=== PATIENT | male | born 1960 | race Caucasian/White ===

== ENCOUNTER 2018-07-26 01:44 | Outpatient (CLI) | payer BC, SELFPAY ==
[2018-07-26 09:23] LABS: ALT 38 U/L (12-78); AST 21 U/L (15-37); Alkaline Phosphatase 86 U/L (46-116); Anion Gap 9.6 mmol/L (3-11); BUN 11 mg/dL (7-18); Bilirubin, Total 0.7 mg/dL (0.2-1.0); CO2 27.4 mmol/L (21.0-32.0); CREATININE 0.75 mg/dL (0.70-1.30); Calcium 8.7 mg/dL (8.5-10.1); Chloride 99 mmol/L (98-107); Cholesterol 218 mg/dL (50-200); Glucose 101 mg/dL (70-100); HDL Cholesterol 75 mg/dL (40-60); LDL CHOLESTEROL 133 mg/dL (<100); Potassium 4.3 mmol/L (3.5-5.1); Sodium 136 mmol/L (136-145); Total Protein 6.9 g/dL (6.4-8.2); Triglyceride 60 mg/dL (30-150)
[2018-07-27 09:38] LABS: PSA, Screening 1.2 ng/ml (0-3.5)
== END 2018-07-26 02:04 ==
PROVIDERS: PCP Physician Assistant Medical; Visit Provider Physician Assistant Medical
DX: Z00.00 Encounter for general adult medical examination without abnormal findings (principal); I10 Essential (primary) hypertension; Z12.5 Encounter for screening for malignant neoplasm of prostate
CPT/HCPCS: 36415; 80053; 80061; 83721; 84153

== ENCOUNTER 2019-06-07 19:40 | Outpatient (REF) | payer BC, SELFPAY ==
[2019-06-07 19:12] LABS: Abs Immature Grans 0.01 k/cumm (0.0-0.09); Absolute Basophil Count 0.01 k/cumm (0.0-0.2); Absolute Eosinophil Count 0.06 k/cumm (0.0-0.7); Absolute Lymphocyte Count 3.36 k/cumm (1.2-3.4); Absolute Monocyte Count 0.58 k/cumm (0.11-0.7); Absolute Neutrophil Count 2.74 k/cumm (1.2-6.7); Basophils % 0.1; Eosinophils % 0.9; HCT 38.7 % (40.0-50.0); Immature Grans % 0.1 %; Lymphocytes % 49.7; Mean Corp. HGB Concentration 36.2 g/dL (32.0-36.0); Mean Corpuscular Volume 88.6 fL (80-95); Mean Platelet Volume 9.8 fL (8.0-11.0); Monocytes % 8.6; Neutrophils % 40.6; Platelet Count 306 x1000/uL (130-400); RBC 4.37 m/cumm (4.50-6.00); White Blood Cell Count 6.76 k/cumm (4.4-10.8)
[2019-06-07 19:28] LABS: Hemoglobin A1C 5.5 % (3.8-5.6)
[2019-06-07 19:35] LABS: ALT 40 U/L (16-63); AST 26 U/L (15-37); Albumin 4.3 g/dL (3.4-5.0); Alkaline Phosphatase 84 U/L (46-116); Anion Gap 9.9 mmol/L (3-11); BUN 13 mg/dL (7-18); Bilirubin, Total 0.6 mg/dL (0.2-1.0); CO2 25.1 mmol/L (21.0-32.0); CREATININE 0.87 mg/dL (0.70-1.30); Calcium 8.5 mg/dL (8.5-10.1); Calculated LDL 112 mg/dL (<100); Chloride 95 mmol/L (98-107); Cholesterol 195 mg/dL (<200); Glucose 105 mg/dL (74-106); HDL Cholesterol 73 mg/dL (40-60); Potassium 4.3 mmol/L (3.5-5.1); Sodium 130 mmol/L (136-145); Total Protein 7.2 g/dL (6.4-8.2); Triglyceride 54 mg/dL (<150)
[2019-06-09 10:01] LABS: Lyme Ab w Rflx to Lyme Confirm Negative (Negative)
[2019-06-12 18:34] LABS: Anaplasma phagocytophilum Negative (Negative); B. miyamotoi PCR Negative (Negative); Babesia divergens/MO-1 Negative (Negative); Babesia duncani Negative (Negative); Babesia microti Negative (Negative); Ehrlichia chaffeensis Negative (Negative); Ehrlichia ewingii/canis Negative (Negative); Ehrlichia muris eauclairensis Negative (Negative)
== END 2019-06-07 20:00 ==
LOC: NCHCN 19:40
PROVIDERS: PCP Physician Assistant Medical; Visit Provider Physician Assistant Medical
DX: W57.XXXA Bitten or stung by nonvenomous insect and other nonvenomous arthropods, initial encounter (principal); T14.8XXA Other injury of unspecified body region, initial encounter; R73.01 Impaired fasting glucose; I10 Essential (primary) hypertension; R04.0 Epistaxis
CPT/HCPCS: 80053; 80061; 87798; 83036; 85025; 86618

== ENCOUNTER 2020-06-05 18:34 | Outpatient (REF) | payer BC, SELFPAY ==
[2020-06-05 21:09] LABS: ALT 46 U/L (16-63); AST 26 U/L (15-37); Albumin 4.3 g/dL (3.4-5.0); Alkaline Phosphatase 90 U/L (46-116); Anion Gap 9.4 mmol/L (3-11); BUN 12 mg/dL (7-18); Bilirubin, Total 0.5 mg/dL (0.2-1.0); CO2 26.6 mmol/L (21.0-32.0); CREATININE 0.8 mg/dL (0.70-1.30); Calcium 8.8 mg/dL (8.5-10.1); Calculated LDL 123 mg/dL (<100); Chloride 98 mmol/L (98-107); Cholesterol 217 mg/dL (<200); Glucose 89 mg/dL (74-106); HDL Cholesterol 84 mg/dL (40-60); Potassium 4.6 mmol/L (3.5-5.1); Sodium 134 mmol/L (136-145); Total Protein 7.4 g/dL (6.4-8.2); Triglyceride 52 mg/dL (<150)
[2020-06-05 21:23] LABS: Hemoglobin A1C 5.5 % (<5.7)
[2020-06-06 17:30] LABS: PSA, Screening 1.3 ng/mL (0.0-3.5)
== END 2020-06-05 18:35 | disposition home or self-care (01) ==
LOC: NCHCN 18:34
PROVIDERS: PCP Physician Assistant Medical; Visit Provider Physician Assistant Medical
DX: I10 Essential (primary) hypertension (principal); R73.03 Prediabetes; Z12.5 Encounter for screening for malignant neoplasm of prostate
CPT/HCPCS: 80053; 80061; 84153; 83036

== ENCOUNTER 2021-07-11 13:00 | Outpatient (REF) | payer BC, SELFPAY ==
[2021-07-11 15:22] LABS: ALT 42 U/L (16-63); AST 24 U/L (15-37); Albumin 4.1 g/dL (3.4-5.0); Alkaline Phosphatase 81 U/L (46-116); Anion Gap 7.6 mmol/L (3-11); BUN 12 mg/dL (7-18); Bilirubin, Total 0.6 mg/dL (0.2-1.0); CO2 26.4 mmol/L (21.0-32.0); CREATININE 0.8 mg/dL (0.70-1.30); Calcium 8.4 mg/dL (8.5-10.1); Calculated LDL 130 mg/dL (<100); Chloride 102 mmol/L (98-107); Cholesterol 211 mg/dL (<200); Glucose 96 mg/dL (74-106); HDL Cholesterol 75 mg/dL (40-60); Potassium 4.5 mmol/L (3.5-5.1); Sodium 136 mmol/L (136-145); Total Protein 6.9 g/dL (6.4-8.2); Triglyceride 34 mg/dL (<150)
[2021-07-11 22:35] LABS: PSA, Screening 1.5 ng/mL (<=4.5)
== END 2021-07-11 13:01 | disposition home or self-care (01) ==
LOC: NCHCN 13:00
PROVIDERS: PCP Physician Assistant Medical; Visit Provider Physician Assistant Medical
DX: I10 Essential (primary) hypertension (principal); N40.0 Benign prostatic hyperplasia without lower urinary tract symptoms; Z12.5 Encounter for screening for malignant neoplasm of prostate
CPT/HCPCS: 80053; 80061; 84153

== ENCOUNTER 2022-07-22 17:43 | Outpatient (REF) | payer BC, SELFPAY ==
[2022-07-22 19:59] LABS: ALT 43 U/L (16-63); AST 28 U/L (15-37); Albumin 4.2 g/dL (3.4-5.0); Alkaline Phosphatase 76 U/L (46-116); Anion Gap 10.6 mmol/L (3-11); BUN 15 mg/dL (7-18); Bilirubin, Total 0.6 mg/dL (0.2-1.0); CO2 24.4 mmol/L (21.0-32.0); CREATININE 0.8 mg/dL (0.70-1.30); Calcium 8.6 mg/dL (8.5-10.1); Calculated LDL 128 mg/dL (<100); Chloride 96 mmol/L (98-107); Cholesterol 212 mg/dL (<200); Estimated GFR 100.69 (mL/min/1.73m2); Glucose 94 mg/dL (74-106); HDL Cholesterol 77 mg/dL (40-60); Potassium 4.1 mmol/L (3.5-5.1); Sodium 131 mmol/L (136-145); Total Protein 7.3 g/dL (6.4-8.2); Triglyceride 39 mg/dL (<150)
[2022-07-23 19:38] LABS: PSA, Diagnostic 0.5 ng/mL (<=4.5)
== END 2022-07-22 17:44 | disposition home or self-care (01) ==
LOC: NCHCN 17:43
PROVIDERS: PCP Physician Assistant Medical; Visit Provider Physician Assistant Medical
DX: Z00.00 Encounter for general adult medical examination without abnormal findings (principal); E78.5 Hyperlipidemia, unspecified; N40.0 Benign prostatic hyperplasia without lower urinary tract symptoms; I10 Essential (primary) hypertension
CPT/HCPCS: 80053; 80061; 84153

== ENCOUNTER 2022-08-11 04:19 | Outpatient (CLI) | payer BC, SELFPAY ==
[2022-08-11 08:49] LABS: ALT 47 U/L (16-63); AST 34 U/L (15-37); Alkaline Phosphatase 81 U/L (46-116); Anion Gap 9.2 mmol/L (3-11); BUN 12 mg/dL (7-18); Bilirubin, Total 0.6 mg/dL (0.2-1.0); CO2 24.8 mmol/L (21.0-32.0); CREATININE 0.8 mg/dL (0.70-1.30); Calcium 8.3 mg/dL (8.5-10.1); Calculated LDL 119 mg/dL (<100); Chloride 98 mmol/L (98-107); Cholesterol 197 mg/dL (<200); Estimated GFR 100.69 (mL/min/1.73m2); Glucose 128 mg/dL (74-106); HDL Cholesterol 70 mg/dL (40-60); Potassium 4.1 mmol/L (3.5-5.1); Sodium 132 mmol/L (136-145); Total Protein 7.4 g/dL (6.4-8.2); Triglyceride 44 mg/dL (<150)
[2022-08-12 09:19] LABS: PSA, Screening 0.5 ng/mL (<=4.5)
== END 2022-08-11 04:20 | disposition home or self-care (01) ==
PROVIDERS: PCP Physician Assistant Medical; Visit Provider Physician Assistant Medical
DX: Z00.00 Encounter for general adult medical examination without abnormal findings (principal); E78.5 Hyperlipidemia, unspecified; Z12.5 Encounter for screening for malignant neoplasm of prostate
CPT/HCPCS: 36415; 80053; 80061; 84153

== ENCOUNTER 2023-02-24 18:50 | Outpatient (REF) | payer BC, SELFPAY ==
--- OUTSIDE RECORDS SUMMARY | 2023-02-24 18:53 | XMS_ITS | Continuity of Care Document ---
Author Name Unknown Organization [facility] Ambulatory Clinics Address [address] [place] [address] Care Team Providers Care Order Selector Name Role Phone Tresa Rowe Primary Care Physician Encounter [facility] NBR [id number] Date(s): 07/13/22 - 07/13/22 [facility] Ambulatory Clinics [address], [place] [address] Encounter Diagnosis Benign localized prostatic hyperplasia with lower urinary tract symptoms (LUTS) (Discharge Diagnosis) - 07/13/22 Discharge Disposition: Home or Self Care Attending Physician: Chelsy Fuller MD Allergies, Adverse Reactions, Alerts No Known Medication Allergies Assessment and Plan Future Appointments Functional Status 07/13/22 Living Environment Home Environment No qualifying data available Other exposure to Infectious Disease Non e Medications cholecalciferol 2000 intl units oral tablet 1 Unknown, 0 Refill(s) Start Date: 02/12/22 Status: Ordered finasteride 5 mg oral tablet 1 Unknown, 0 Refill(s) Start Date: 02/12/22 Status: Ordered Fish Oil 1000 mg oral capsule BID, 1 Unknown, 0 Refill(s) Start Date: 02/12/22 Status: Ordered lisinopril 40 mg oral tablet 1 Unknown, 0 Refill(s) Start Date: 02/12/22 Status: Ordered Melatonin 1 mg oral tablet 0 Refill(s) Start Date: 02/12/22 Status: Ordered multivitamin adult, oral tablet 0 Refill(s) Start Date: 02/12/22 Status: Ordered tamsulosin 0.4 mg oral capsule 0.8 mg = 2 cap, Oral, Daily, 0 Refill(s) Start Date: 03/23/22 Status: Ordered Problem List Condition Confirmation Course Effective Dates Status Health St atus Informant Benign localized prostatic hyperplasia with lower urinary tract symptoms (LUTS) Confirmed Active Essential hypertension Confirmed Active Full thickness rotator cuff tear Confirmed Active 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 Sprain of cruciate ligament of knee Confirmed Active Procedures Procedure Date Related Diagnosis Body Site Status Colonoscopy Completed Results Laboratory List Name Date .Urinalysis POCT 07/13/22 Most recent to oldest [Reference Range]: 1 Method of Collect POC Clean Catch *NA* (07/13/22 8:56 AM) Specific [place], Ur POC 1.015 *NA* (07/13/22 8:56 AM) Specimen Color POC [Yellow] Yellow (07/13/22 8:56 AM) Glucose, Urine POC Negative mg/dL *NA* (07/13/22 8:56 AM) Bilirubin, Urine POC [Negative] Negative (07/13/22 8:56 AM) Ketones, Urine POC [Negative mg/dL] Nega tive mg/dL (07/13/22 8:56 AM) Blood, Urine POC [Negative] Trace *ABN* (07/13/22 8:56 AM) pH, Urine POC 7.0 *NA* (07/13/22 8:56 AM) Protein, Urine POC [Negative mg/dL] Nega tive mg/dL (07/13/22 8:56 AM) Urobilinogen, Urine POC [0.2] 0.2 (07/13/22 8:56 AM) Nitrite, Urine POC [Negative] Negative (07/13/22 8:56 AM) Leuk Esterase, Urine POC [Negative] Nega tive (07/13/22 8:56 AM) Clarity, Urine POC [Clear] Clear (07/13/22 8:56 AM) Vital Signs Most recent to oldest [Reference Range]: 1 Temperature Temporal Artery [36-38 Deg C ] 35.9 Deg C *LOW* (07/13/22 8:38 AM) Apical Heart Rate [60-100 bpm] 65 bpm (07/13/22 8:38 AM) Respiratory Rate [12-24 br/min] 14 br/mi n (07/13/22 8:38 AM) Blood Pressure [90-140/60-90 mmHg] 118/7 8mmHg (07/13/22 8:38 AM) Weight 76.20 kg (07/13/22 8:38 AM) Weight Measured (lbs) 167.992 lb (07/13/22 8:38 AM) [place] Body Weight Calculated 66.1 kg (07/13/22 8:38 AM) Height 170.18 cm (07/13/22 8:38 AM) Height/Length Measured (inches) 67 inch (07/13/22 8:38 AM) BSA Measured 1.9 m2 (07/13/22 8:38 AM) Body Mass Index 26.31 kg/m2 (07/13/22 8:38 AM) Social History Social History Type Response Tobacco Never tobacco user T obacco Use:. Sex Physician Outpatient Note * Chelsy Fuller MD: PERFORM Event Display: Office Clinic Note Physician Authored Date: [id number] ANABELL MICHAEL :1960 Age:61 years Sex:Male Visit Date:07/13/2022 Primary Care Physician: Tresa Rowe History of Present Illness Mr. Michael is a pleasant 61 year-old man who presents today for follow-up ??of BPH/LUTS and chronic left groin pain.? He was last seen on??03/23/22. ?? He??continues to have??left groin pain intermittently,? which is more likely to cause bother when he is very active.?? He was diagnosed with a left inguinal hernia, and follows with Dr. [place].?? He is currently managing the hernia with observation. ?? He has had issues with urination for many years, and has been taking tamsulosin since 2013, when hesaw Dr. Duong, who recommended it. His PCP increased the dose to 0.8 mg nightly in December 2020.? He also takes finasteride, and has been taking it since June 2021. ?? He currently has some bother with LUTS, with nocturia x 2-3 (rarely once, usually only twice).? He voids about every 2h while awake.? He sometimes double voids.? He often has post-void dribbling.?? He??continues to have a slow urinary stream, especially at night.?? He sometimes has intermittency.? He does not strain to void.? He does not feel he always voids to completion.? He has urinary urgency at times, and now occasionally has low- volume UUI.?? He has urinary hesitancy at times, mainly at night.? His PVR today was??151?mL.? He has never had gross hematuria. He has never had urolithiasis. He has never had a UTI or prostatitis.? He has never had an elevated PSA. He does not have a family history of prostate or breast cancer.? PSA: 06/05/20: 1.3. Physical Exam Vitals & Measurements T:??35.9?C ??(Temporal Artery)?? HR:??65??(Apical)?? RR:??14?? BP:??118/78?? SpO2:??97%?? HT:??170.18??cm?? WT:??76.20??kg?? BMI:??26.31?? BSA:??1.9?? GENERAL APPEARANCE:??alert and oriented in NAD; appropriate with good affect.??.?? NEURO:??grossly intact.?? HEENT:??NCAT; EOMI.?? NECK:??supple.?? CHEST:??symmetric excursions.?? ABDOMEN:??soft, NT, ND.?? MUSCULOSKELETAL:??good gait and station.?? EXTREMITIES:??no c/c/e??.?? BACK/SPINE:??no CVAT.?? :??deferred. Assessment/Plan Benign localized prostatic hyperplasia with lower urinary tract symptoms (LUTS)??N40.1 Ordered: Urinalysis with Microscopic if Indicated, Urine, Routine Collect, 07/13/22, Once, Nurse collect, Print Label, Benign localized prostatic hyperplasia with lower urinary tract symptoms (LUTS), Order for future visit Urine Dipstick Clinic POC (RE), 07/13/22 8:37:00 EDT, Benign localized prostatic hyperplasia with lower urinary tract symptoms (LUTS), 07/13/22 8:37:00 EDT ?? ASSESSMENT:?? Mr. Michael is a pleasant 61 year-old man with BPH/LUTS with incomplete bladder emptying who manages his symptoms with high-dose tamsulosin and finasteride, which he started in August 2021.?? He continues to have some ??bother with LUTS, but finds it manageable.?? He does not want to consider surgical options at this point, and prefers to remain on maximal medical therapy. ?? PLAN: 1.?? He will continue??finasteride and high-dose tamsulosin.?? 2.?? He will follow up in one year. 3. We will obtain his PSA results from 2021 and 2022 from his PCP's office. 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 Tobacco Never tobacco user Tobacco Use:. Family History Family Member(s): ?? FATHER, at age: Unknown. Cause of : Lab Results Test Name Test Result Date/Time Method of Collect POC Clean Catch 07/13/2022 08:56 EDT Specimen Color POC Yellow 07/13/2022 08:56 EDT Clarity, Urine POC Clear 07/13/2022 08:56 EDT Glucose, Urine POC Negative 07/13/2022 08:56 EDT Bilirubin, Urine POC Negative 07/13/2022 08:56 EDT Ketones, Urine POC Negative 07/13/2022 08:56 EDT Specific [place], Ur POC 1.015 07/13/2022 08:56 EDT pH, Urine POC 7.0 07/13/2022 08:56 EDT Protein, Urine POC Negative 07/13/2022 08:56 EDT Urobilinogen, Urine POC 0.2 07/13/2022 08:56 EDT Nitrite, Urine POC Negative 07/13/2022 08:56 EDT Blood, Urine POC Trace 07/13/2022 08:56 EDT Leuk Esterase, Urine POC Negative 07/13/2022 08:56 EDT Electronically Signed on 07/13/22 09:17 AM Chelsy Fuller MD Patient Care team information Care Team Related Persons Name: GABRIELA MICHAEL Address: [address] [id number] [facility]
--- OUTSIDE RECORDS SUMMARY | 2023-02-24 18:53 | XMS_ITS | Continuity of Care Document ---
Author Name Unknown Organization [facility] Address [address] [place] [address] Care Team Providers Care Glaze Sprayer Name Role Phone Sydnie Rowe Primary Care Physician Encounter [facility] [facility] NBR [id number] Date(s): 09/02/22 - 09/02/[address] [address]- Encounter Diagnosis Abnormal findings on diagnostic imaging of other abdominal regions, including retroperitoneum(Final) - Hypo-osmolality and hyponatremia(Final) - Discharge Disposition: Home or Self Care Attending Physician: SYDNIE ROWE PA-C Admitting Physician: SYDNIE ROWE PA-C Referring Physician: SYDNIE ROWE PA-C Allergies, Adverse Reactions, Alerts No Known Medication Allergies Assessment and Plan Future Appointments Medications cholecalciferol 2000 intl units oral tablet 1 Unknown, 0 Refill(s) Start Date: 02/12/22 Status: Ordered finasteride 5 mg oral tablet 1 Unknown, 0 Refill(s) Start Date: 02/12/22 Status: Ordered finasteride 5 mg oral tablet 5 mg = 1 tab, Oral, Daily, # 30 tab, 11 Refill(s), Pharmacy: [facility][id number] Start Date: 08/05/22 Stop Date: 07/31/23 Status: Ordered Fish Oil 1000 mg oral [...] Diagnosis Body Site Status Colonoscopy Completed Results Radiology Reports * Exam Date Time Procedure Performing Provider Status 09/02/22 7:35 AM XR Chest 2 Views DomainUser, Generated ; Auth (Verified) Notes: (XR Chest 2 Views) Reason For Exam: hyponatrimia XR Chest 2 Views EXAM DESCRIPTION: XR Chest 2 Views 09/02/2022 INDICATION: HYPONATRIMIA TECHNIQUE: PA and lateral views of the chest. COMPARISON: None available FINDINGS: The lungs are well expanded and clear with no focal consolidation or pulmonary edema. The cardiomediastinal contour and pleural margins are within normal limits. Right mid clavicle deformity consistent with old, healed fracture. Postsurgical changes in the right humeral head. IMPRESSION: No active chest disease. JOB #: [id number] Final Signed by: eHron Schaefer MD Signed (Electronic Signature): 09/02/2022 9:10 am * Exam Date Time Procedure Performing Provider Status 09/02/22 7:35 AM US Abdomen Limited SymoneUserRobert ed; Auth (Verified) Notes: (US Abdomen Limited) Reason For Exam: Abnormal findings on diagnostic imaging US Abdomen Limited EXAM DESCRIPTION: US Abdomen Limited 09/02/2022 INDICATION: ABNORMAL FINDINGS ON DIAGNOSTIC IMAGING TECHNIQUE: Grayscale and color Doppler ultrasound examination of the right upper quadrant region of the abdomen. COMPARISON: None FINDINGS: Liver measures 14.3 cm in maximum dimension. No focal hepatic lesion identified. No evidence of hepatic surface nodularity or hepatic steatosis. The main portal vein is patent with normal flow direction. No ascites in the right upper quadrant Pancreas is partly obscured by overlying bowel gas. Visualized portions are unremarkable No cholelithiasis, gallbladder wall thickening or pericholecystic fluid accumulation. No biliary dilatation with common bile duct diameter of 4 mm. Negative sonographic Perry sign Right kidney measures 10.9 cm in maximum dimension. No focal right renal mass, hydronephrosis or perinephric fluid collection. IMPRESSION: No cholelithiasis or biliary dilatation Normal ultrasound examination of the liver. JOB #: [id number] Final Signed by: Heron Schaefer MD Signed (Electronic Signature): 09/02/2022 8:16 am Social History Social History Type Response Tobacco Never tobacco user T obacco Use:. Sex Patient Care team information Care Team Related Persons Name: GABRIELA MUHAMMAD Address: Home [address] [place] [phone] [facility]
[2023-02-24 20:46] LABS: Anion Gap 10.4 mmol/L (3-11); BUN 11 mg/dL (7-18); CO2 25.6 mmol/L (21.0-32.0); CREATININE 0.9 mg/dL (0.70-1.30); Calcium 9.1 mg/dL (8.5-10.1); Chloride 97 mmol/L (98-107); Estimated GFR 96.57 (mL/min/1.73m2); Glucose 102 mg/dL (74-106); Sodium 133 mmol/L (136-145)
== END 2023-02-24 18:51 | disposition home or self-care (01) ==
LOC: NCHCN 18:50
PROVIDERS: PCP Physician Assistant Medical; Visit Provider Physician Assistant Medical
DX: I10 Essential (primary) hypertension (principal)
CPT/HCPCS: 80048

== ENCOUNTER 2023-08-25 19:44 | Outpatient (REF) | payer BC, SELFPAY ==
[2023-08-25 22:38] LABS: Anion Gap 9.2 mmol/L (3-11); BUN 8 mg/dL (7-18); CO2 24.8 mmol/L (21.0-32.0); CREATININE 0.8 mg/dL (0.70-1.30); Calcium 8.9 mg/dL (8.5-10.1); Calculated LDL 109 mg/dL (<100); Chloride 97 mmol/L (98-107); Cholesterol 197 mg/dL (<200); Estimated GFR 99.44 (mL/min/1.73m2); Glucose 119 mg/dL (74-106); HDL Cholesterol 78 mg/dL (40-60); Potassium 4.2 mmol/L (3.5-5.1); Sodium 131 mmol/L (136-145); Triglyceride 50 mg/dL (<150)
== END 2023-08-25 19:45 | disposition home or self-care (01) ==
LOC: NCHCN 19:44
PROVIDERS: PCP Physician Assistant Medical; Visit Provider Physician Assistant Medical
DX: I10 Essential (primary) hypertension (principal); E78.5 Hyperlipidemia, unspecified
CPT/HCPCS: 80048; 80061

== ENCOUNTER 2024-03-01 19:35 | Outpatient (REF) | payer BC, SELFPAY ==
--- OUTSIDE RECORDS SUMMARY | 2024-03-01 19:40 | XMS_ITS | Continuity of Care Document ---
Author Organization [facility] Address [address] [place] [address] Care Team Providers Care Distribution Systems Serviceperson Name Role Phone SYDNIE PEREIRA PA-C Primary Care Kailyn dora Encounter [facility] [facility] NBR [id number] Date(s): 07/16/23 - 07/16/[address] [id number]- [place] Discharge Disposition: Home or Self Care Attending Physician: Chelsy Fuller MD Admitting Physician: Chelsy Fuller MD Referring Physician: Chelsy Fuller MD Allergies, Adverse Reactions, [...] Daily, # 30 tab, 11 Refill(s), Pharmacy: [facility] #[id number] Start Date: 08/05/22 Stop Date: 07/31/23 Status: [...] Colonoscopy Completed Results Laboratory List Name Date PSA Diagnostic 07/16/23 Most recent to oldest [Reference Range]: 1 PSA Total Diagnostic [<=4.000 ng/mL] 0.6 67 ng/mL 1 (07/16/23 7:19 AM) 1Interpretive Data: The concentration of Prostate specific antigen determined from different manufactures and assay methods will vary due to differences in the method and reagent specificity. Values obtained by different methods cannot be used interchangeably and may not be comparable. This is a [employer]??paramagnetic particle, chemiluminescent immunoassay. Social History Social History Type Response Tobacco Never tobacco user T obacco Use:. Sex Patient Care team information Care Team Personnel Name: KELLI ROMERO, SYDNIE JIMENEZ Position: No Access Member Role: Primary Care Physician Address: Address: [address] [address]- Care Team Related Persons Name: GABRIELA MUHAMMAD Address: Home [address] [place] [phone] [facility]
--- OUTSIDE RECORDS SUMMARY | 2024-03-01 19:40 | XMS_ITS | Encounter Summary ---
Author Organization [facility] Address [address] [place] [address] Care Team Providers Care Social Services Aide Name Role Phone Malik Ye MD Primary Care Provider U romaine Encounter Details Date Type Department Care Team (Late st Contact Info) Description 06/08/2019 Lab Requisition [facility] Pathology & Laboratory Medicine - [address] [address] Unknown, Provider, Social History Tobacco Use Types Packs/Day Years Used Date Smoking Tobacco: Never Assessed Sex and Gender Information Value Date Recorded Sex Assigned at Not on file Legal Sex Male 18:52 EST Gender Identity Not on file Sexual Orientation Not on file documented as of this encounter Plan of Treatment Not on file documented as of this encounter Procedures Procedure Name Priority Date/Time Associated Diagnosis Comments LYME AB Routine 06/07/2019 17:50 EDT documented in this encounter Results * LYME AB (06/07/2019 17:50 EDT) Lyme Ab Negative Negative 06/09/2019 9:55 EDT [facility] Blood VENOUS BLOOD / Unknown 06/07/2019 17:50 EDT 06/08/2019 17:24 EDT us Provider Unknown IMMUNOLOGY AND SEROLOGY CASTILLO HUTTON Final Result [facility] [address] [place] [address] documented in this encounter Visit Diagnoses Not on filedocumented in this encounter Care Teams Social Services Aide Relationship Specialty Start Date End Date Malik Ye MD PCP - General 09/03/10 documented as of this encounter
--- OUTSIDE RECORDS SUMMARY | 2024-03-01 19:40 | XMS_ITS | Encounter Summary ---
Author Organization [facility] [place] [address] Care Team Providers Care Burglar Alarm Installer Name Role Phone Tresa Rowe Primary Care Provider [phone] Encounter Details Date Type Department Care Team (Latest Contact Info) Description 06/11/2023 Travel Social History Tobacco Use Types Packs/Day Years Used Date Smoking Tobacco: Never Smokeless Tobacco: Never Alcohol Use Standard Drinks/Week Comments Yes 0 (1 standard drink = 0.6 oz pur e alcohol) Sex and Gender Information Value Date Recorded Sex Assigned at Not on file Gender Identity Not on file Sexual Orientation Not on file documented as of this encounter Plan of Treatment Not on file documented as of this encounter Visit Diagnoses Not on filedocumented in this encounter Care Teams Burglar Alarm Installer Relationship Specialty Start Date End Date Tresa Rowe PA [address] [place] [address] PCP - General Family Medicine 06/11/23 documented as of this encounter
--- OUTSIDE RECORDS SUMMARY | 2024-03-01 19:40 | XMS_ITS | Encounter Summary ---
Author Organization [facility] Address [address] [place] [address] Care Team Providers Care Railway Equipment Operator Name Role Phone Malik Ye MD Primary Care Provider U romaine Encounter Details Date Type Department Care Team (Late st Contact Info) Description 08/11/2022 Lab Requisition [facility] Pathology & Laboratory Medicine - [facility] [address] [place] [address] Outr Resulting Lab, Provider Social History Tobacco Use Types Packs/Day Years [...] Procedure Name Priority Date/Time Associated Diagnosis Comments PSA TOTAL, DIAGNOSTIC Routine 08/11/2022 7:40 EDT documented in this encounter Results * PSA TOTAL, DIAGNOSTIC (08/11/2022 7:40 EDT) PSA 0.5 <=4.5 ng/mL 08/12/2022 9:14 EDT [facility] Blood VENOUS BLOOD / Unknown 08/11/2022 7:40 EDT 08/11/2022 16:51 EDT Narrative [facility] - 08/12/2022 9:14 EDT NOTE: Serum PSA concentration should not be interpreted as absolute evidence for the presence or absence of malignant disease. Assayed on Siemens [employer] Interactiveaur XPT using chemiluminescent technology.??Values obtained by using different assay methods cannot be used interchangeably. us Provider Outr Resulting Lab CHEMISTRY & BLOOD GA S ORDERABLES Final Result [facility] [address] [place] [address] documented in this encounter Visit Diagnoses Not on filedocumented in this encounter Care Teams Railway Equipment Operator Relationship Specialty Start Date End Date Malik Ye MD PCP - General 09/03/10 documented as of this encounter
--- OUTSIDE RECORDS SUMMARY | 2024-03-01 19:40 | XMS_ITS | Encounter Summary ---
Author Organization [facility] Address [address] [place] [address] Care Team Providers Care Education Professor Name Role Phone Malik Ye MD Primary Care Provider U romaine Encounter Details Date Type Department Care Team (Late st Contact Info) Description 07/11/2021 Lab Requisition [facility] Pathology & Laboratory Medicine - [facility] [address] [place] [address] Outr Resulting Lab, Provider Social History Tobacco [...] Associated Diagnosis Comments PSA TOTAL, DIAGNOSTIC Routine 07/11/2021 8:20 EDT documented in this encounter Results * PSA TOTAL, DIAGNOSTIC (07/11/2021 8:20 EDT) PSA 1.5 <=4.5 ng/mL 07/11/2021 22:30 EDT [facility] Blood VENOUS BLOOD / Unknown 07/11/2021 8:20 EDT 07/11/2021 21:21 EDT Narrative [facility] - 07/11/2021 22:30 EDT NOTE: Serum PSA concentration should not be interpreted as absolute evidence for the presence or absence of malignant disease. Assayed on Siemens [employer]VIA [employer] XPT using chemiluminescent technology.??Values obtained by using different assay methods cannot be used interchangeably. us Provider Outr Resulting Lab CHEMISTRY & BLOOD GA S ORDERABLES Final Result [facility] [address] [place] [address] documented in this encounter Visit Diagnoses Not on filedocumented in this encounter Care Teams Education Professor Relationship Specialty Start Date End Date Malik Ye MD PCP - General 09/03/10 documented as of this encounter
--- OUTSIDE RECORDS SUMMARY | 2024-03-01 19:40 | XMS_ITS | Continuity of Care Document ---
Author Organization [facility] Ambulatory Clinics Address [address] [place] [address] Care Team Providers Care Blanching Machine Operator Name Role Phone SYDNIE PEREIRA PA-C Primary Care Kailyn john Encounter [facility] NBR [id number] Date(s): 01/31/24 - 01/31/24 [facility] Ambulatory Clinics [address] [place], [place] [address] Encounter Diagnosis Localized infection of skin(Discharge Diagnosis) - 01/31/24 Local infection of the skin and subcutaneous tissue, unspecified(Final) - Discharge Disposition: Home or Self Care Attending Physician: Elodia Joy PA-C Allergies, Adverse Reactions, Alerts No Known Medication Allergies Assessment and Plan Extracted from: Title:[facility] Urgent Care Office Visit Note Author:Truong Joy PA-C Date:01/31/24 1.??Localized infection of s kin??L08.9 ??Patient presenting??with??what appears to be a localized infection??of the skin at the site of previous splinters. ??It does appear that the splinters have been removed in entirety.?? No fever or chills or signs of tenosynovitis.?? Patient is unsure if he has a history of MRSA but notes that he did have a serious infection that required IV antibiotics in the past.?? He will be started on Bactrim.?? Encouraged that he wash the site twice daily with an antibacterial soap. ??Should he develop any worsening pain, redness, swelling, loss of range of motion in the digit or fever advised immediate recheck. ??He agrees with plan and will follow-up as needed Ordered: Bactrim DS 800 mg-160 mg oral tablet, 1 tab, Oral, BID, # 14 tab, 0 Refill(s), Pharmacy: [id number], 174, cm, 07/19/23 7:59:00 EDT, Height, 77.11, kg, 01/31/24 20:00:00 EST, Weight Dosing Office serv/reg jean/wkend/holiday [id number], 01/31/24 19:07:00 EST, Localized infection of skin ?? Future Appointments Medications Bactrim DS 800 mg-160 mg oral tablet 1 tab, Oral, BID, # 14 tab, 0 Refill(s), Pharmacy: [id number], 174, cm, 07/19/23 7:59:00 EDT, Height, 77.11, kg, 01/31/24 20:00:00 EST, Weight Dosing Start Date: 01/31/24 Stop Date: 02/07/24 Status: Ordered cholecalciferol 2000 intl units oral tablet 1 Unknown, 0 Refill(s) Start Date: 02/12/22 Status: Ordered finasteride 5 mg oral tablet 1 Unknown, 0 Refill(s) Start Date: 02/12/22 Status: Ordered finasteride 5 mg oral tablet 5 mg = 1 tab, Oral, Daily, # 90 tab, 3 Refill(s), Pharmacy: [id number], 174, cm, 07/19/23 7:59:00 EDT, Height, 77.11, kg, 07/19/23 8:06:00 EDT, Weight Dosing Start Date: 07/19/23 Stop Date: 07/13/24 Status: Ordered Fish Oil 1000 mg oral [...] Related Diagnosis Body Site Status Colonoscopy Completed Vital Signs Most recent to oldest [Reference Range]: 1 Temperature Tympanic [36.6-38.1 Deg C] 3 6.6 Deg C (01/31/24 7:52 PM) Peripheral Pulse Rate [60-100 bpm] 62 bp m (01/31/24 7:52 PM) Blood Pressure [90-120/60-80 mmHg] 138/8 4mmHg *HI* (01/31/24 7:52 PM) Mean Arterial Pressure, Cuff [65-140 mmH g] 102 mmHg (01/31/24 7:52 PM) Weight 77.11 kg (01/31/24 7:52 PM) Weight Measured (lbs) 169.998 lb (01/31/24 7:52 PM) Weight Dosing 77.110 kg (01/31/24 7:52 PM) Social History Social History Type Response Tobacco Never tobacco user T obacco Use:. Sex Sex Representation Male (finding) Physician Outpatient Note * Elodia Joy PA-C: PERFORM Event Display: Office Clinic Note Physician Authored Date: [id number] ANABELL MUHAMMAD JR :1960 Age:63 years Sex:Male Visit Date:01/31/2024 Primary Care Physician: KELLI ROMERO, SYDNIE JIMENEZ Chief Complaint splinters from pressure treated wood in left thumb, unsure if theres more in there, thump is swollen and warm, uncomfortable pt wants to rule out/prevent infection. pt denies any fevers or other symptoms History of Present Illness This is a 63-year-old male who presents with concern for an infection in his hand. ??Patient reports that he removed several splinters from pressure-treated wood??between his left thumb and index finger and is concerned that it may be infected. ??It is red, warm, swollen,??and his thumb is a bit stiff. ??He has not had any fever or chills.?? He is concerned because he has had an infection in the past that required 3 days of IV antibiotics. ??He did thoroughly cleanse the area and believes that he removed all the splinters Physical Exam Vitals & Measurements T:??36.6?C ??(Tympanic)?? HR:??62??(Peripheral)?? BP:??138/84?? SpO2:??97%?? WT:??77.11??kg?? General: Alert and oriented x 3, no acute distress, well-nourished and hydrated Heart: Regular rate and rhythm, no murmurs, rubs, gallops Extremities: Examination of the volar aspect of the base of the left thumb reveals??2 superficial abrasions with surrounding erythema, mild edema, warmth, tenderness to palpation. ??There is no pinpoint or localized tenderness. ??No obvious??superficial foreign body.?? Flexion and extension of the thumb are intact. Assessment/Plan 1.??Localized infection of skin??L08.9 ??Patient presenting??with??what appears to be a localized infection??of the skin at the site of previous splinters. ??It does appear that the splinters have been removed in entirety.?? No fever or chills or signs of tenosynovitis.?? Patient is unsure if he has a history of MRSA but notes that he did have a serious infection that required IV antibiotics in the past.?? He will be started on Bactrim.?? Encouraged that he wash the site twice daily with an antibacterial soap. ??Should he develop any worsening pain, redness, swelling, loss of range of motion in the digit or fever advised immediaterecheck. ??He agrees with plan and will follow-up as needed Ordered: Bactrim DS 800 mg-160 mg oral tablet, 1 tab, Oral, BID, # 14 tab, 0 Refill(s), Pharmacy: [id number], 174, cm, 07/19/23 7:59:00 EDT, Height, 77.11, kg, 01/31/24 20:00:00 EST, Weight Dosing Office serv/reg jean/wkend/holiday [id number], 01/31/24 19:07:00 EST, Localized infection of skin ?? 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 Sprain of cruciate ligament of knee Historical No qualifying data Procedure/Surgical History ???Colonoscopy Medications Bactrim DS 800 mg-160 mg oral tablet, 1 tab, Oral, BID cholecalciferol 2000 intl units oral tablet finasteride 5 mg oral tablet finasteride 5 mg oral tablet, 5 mg= 1 tab, Oral, Daily, 3 refills Fish Oil 1000 mg oral capsule, BID lisinopril 40 mg oral tablet Melatonin 1 mg oral tablet multivitamin adult, oral tablet tamsulosin 0.4 mg oral capsule, 0.8 mg= 2 cap, Oral, Daily Allergies No Known Medication Allergies Social History Alcohol Current, Daily Electronic Cigarette/Vaping Electronic Cigarette Use: Never. Tobacco Never tobacco user Tobacco Use:. Family History Family history is negative Family Member(s): ?? FATHER, at age: Unknown. Cause of : Electronically Signed on 01/31/2024 20:44 EST Elodia Joy PA-C Patient Care team information Care Team Personnel Name: SYDNIE PEREIRA PA-C Position: No Access Member Role: Primary Care Physician Address: [place] [address]- Care Team Related Persons Name: GABRIELA MUHAMMAD Insurance Providers Guarantor name: ANABELL MUHAMMAD Health Plan Information #: 1 Payer: SARAH BS Member Number: [id number] Policy Number: NA Health Plan Information #: 2 Payer: BS Member Number: [id number] Policy Number: NA
--- OUTSIDE RECORDS SUMMARY | 2024-03-01 19:40 | XMS_ITS | Encounter Summary ---
Author Organization [facility] [place] [address] Care Team Providers Care Printed Circuit Layout Taper Name Role Phone Zully Cruz APRN Primary Care Provider [phone] Encounter Details Date Type Department Care Team (Late st Contact Info) Description 07/05/2012 External Results XRay at [address] [place] [address] Provider, Scanning Social History Tobacco Use Types Packs/Day Years [...] Procedure Name Priority Date/Time Associated Diagnosis Comments MRI/MRA SCAN Routine 06/07/2012 documented in this encounter Results * Scan Doc: MRI/MRA (06/07/2012) Anatomical Region Laterality Modality Other Scanning Provider MEDIA MGR SCAN EXT O RDR/RSLT documented in this encounter Visit Diagnoses Not on filedocumented in this encounter Care Teams Printed Circuit Layout Taper Relationship Specialty Start Date End Date Zully Cruz APRN PCP - General 07/03/12 06/10/23 documented as of this encounter
--- OUTSIDE RECORDS SUMMARY | 2024-03-01 19:40 | XMS_ITS | Encounter Summary ---
Author Organization [facility] Address [address] [place] [address] Care Team Providers Care Hat Blocker Name Role Phone Malik Ye MD Primary Care Provider Bart gavin Encounter Details Date Type Department Care Team (Late st Contact Info) Description 06/06/2020 Lab Requisition [facility] Pathology & Laboratory Medicine - [facility] [address] [place] [address] Outr Resulting Lab, Provider Social History Tobacco [...] Associated Diagnosis Comments PSA TOTAL, DIAGNOSTIC Routine 06/05/2020 17:43 EDT documented in this encounter Results * PSA TOTAL, DIAGNOSTIC (06/05/2020 17:43 EDT) PSA 1.3 0.0 - 3.5 ng/mL 06/06/2020 17:25 EDT [facility] Blood VENOUS BLOOD / Unknown 06/05/2020 17:43 EDT 06/06/2020 16:07 EDT Narrative [facility] - 06/06/2020 17:25 EDT NOTE: Serum PSA concentration should not be interpreted as absolute evidence for the presence or absence of malignant disease. Assayed on [employer] XPT using chemiluminescent technology.??Values obtained by using different assay methods cannot be used interchangeably. us Provider Outr Resulting Lab CHEMISTRY & BLOOD GA S ORDERABLES Final Result [facility] [address] [place] [address] documented in this encounter Visit Diagnoses Not on filedocumented in this encounter Care Teams Hat Blocker Relationship Specialty Start Date End Date Malik Ye MD PCP - General 09/03/10 documented as of this encounter
--- OUTSIDE RECORDS SUMMARY | 2024-03-01 19:40 | XMS_ITS | Encounter Summary ---
[place] [address] Care Team Providers Care Auto Haulaway Driver Name Role Phone Zully Cruz APRN Primary Care Provider [phone] Reason for Visit * Reason Comments Right Leg Pain Encounter Details Date Type Department Care Team (Latest Contact Info) Description 07/05/2012 7:20 AM EDT Office [place] [address] Steve Villalpando MD Spinal stenosis of lumbar region with radiculopathy L3-4 with right anterior thigh pain (Primary Dx) Discharge Disposition: Home Social History Tobacco Use Types Packs/Day Years Used Date Smoking Tobacco: Never Smokeless Tobacco: Never Alcohol Use Standard Drinks/Week Comments Yes 0 (1 standard drink = 0.6 oz pur e alcohol) Sex and Gender Information Value Date Recorded Sex Assigned at Not on file Gender Identity Not on file Sexual Orientation Not on file documented as of this encounter Last Filed Vital Signs Vital Sign Reading Time Taken Comments Blood Pressure 124/78 07/05/2012 7:57 AM EDT Pulse - - Temperature - - Respiratory Rate - - Oxygen Saturation - - Inhaled Oxygen Concentration - - Weight 72.6 kg (160 lb) 07/05/2012 7:57 AM EDT Height 172.7 cm (5' 8) 07/05/2012 7:57 AM EDT Body Mass Index 24.33 07/05/2012 7:57 AM EDT documented in this encounter Progress Notes * Valeriano Jean-Baptiste - 07/05/2012 8:41 AM EDT Dictating for Dr. Villalpando. This is a spine center consult note. CHIEF COMPLAINT: Right anterior thigh and right buttock pain. HISTORY OF PRESENT ILLNESS: Mr. Michael is a very pleasant 51-year-old gentleman who describes two-month history of right lower extremity and low back pain. He describes the onset of this as associated with a maneuver carrying a golf bag when he twisted his back. This was done in [place]. He then had a duration of symptoms including mostly right buttock pain at that point that has progressed more to right anterior thigh pain. He was seen by his primary care provider or a nurse practitioner at office and was diagnosed with piriformis syndrome, however, the pain did not seem to improve. He underwent a course of oral steroids and then was seen in the emergency department at which time he was ruled out for kidney stones due to a history at that time of some urinary dribbling and retention. He was taking Vicodin and tramadol for control of his pain. Kidney stones were ruled out but he was then started on Flomax and bethanechol and was referred to urologist who ruled out any prostate issues. He states that over the past couple of weeks the pain has improved significantly. During the time when pain was at its worst, he had difficulty walking and sleeping with any comfort. He states that sitting was the only position that was comfortable for him. He denies any numbness in the lower extremities, however, did complain of some bilateral calf tingling. He also complains of weakness in the right thigh, especially with his quadriceps muscle and feels that it is atrophying. He has noticed that difficulty at work when carrying a ladder approximately 28 feet in length. He had no incontinence of stool, however, had some constipation which he relates to use of the pain medications. He has also had some low back pain but this has been much less of an issue than the right lower extremity pain. He comes in today for evaluation and suggestion of ways to avoid the situation in the future. He also has been taking ibuprofen 800 mg three times daily throughout this and feels that that gives him some relief. At this point, he is also taking Flexeril at night occasionally and has done so once in the past week. Past medical history includes hyperlipidemia, hypertension, PVCs. Past surgical history includes right knee surgery x3 including ACL reconstruction and microfracture in 2012. He has had hernia surgery as well as colonoscopy. Medications are up to date and reviewed in eD-H includes simvastatin, lisinopril, tamsulosin, ibuprofen, aspirin, multivitamin, fish oil. ALLERGIES: NO KNOWN DRUG ALLERGIES. FAMILY HISTORY: Noncontributory. SOCIAL HISTORY: He denies using tobacco or smoking cigarettes. He drinks occasional alcohol. 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 He does do some lifting at his job. He enjoys golf and using the [employer] to a significant degree. He is very active. PHYSICAL EXAMINATION: Generally, awake and alert, in no acute distress. Gait is observed and demonstrates no antalgia. He is able to heel walk and toe walk. He is able to do repeated heel raises without fatiguing. He can tandem walk. Back: He has no tenderness to palpation throughout the thoracic or lumbar or sacral spine. Extension reveals good extension without reproduction of pain to approximately 25 degrees. He can flex fully and touch his hands to his feet. Straight leg raises are negative bilaterally as are femoral tension signs with the patient prone. He has 5/5 strength throughout the bilateral lower extremities including hip flexion, knee flexion, knee extension, ankle plantar and dorsiflexion, EHL, peroneals. His bilateral sensation is intact to light touch throughout the lower extremities. This is in all distributions. He has 1+ palpable DP pulse bilaterally. He has absent patellar reflexes bilaterally and normal 1+ Achilles reflexes bilaterally. Babinski's are downgoing. His hips demonstrate full range of motion without reproduction of pain. He has no clonus as well. IMAGING: Though he has had several other imaging studies including x-rays and CT scans in the recent past, what we have available for today for review is an MRI performed at an outside institution on June 06. On review of these images, they demonstrate generally normal-appearing lumbar spine, however, there is some evidence of disease at the L3-L4 level. He does have some degenerative disk disease throughout the lumbar spine, especially at the L5-S1, L3-L4, and T12-L1 areas. At the L3-L4 level, he does have some [id number] stenosis both centrally and the lateral recesses as well. On the right side, he does have some evidence of a disk protrusion that seems to be encroaching upon the right L3 nerve foramen and nerve root. With this evidence of stenosis at the L3-L4 level, there is a chance that his exiting L3 or traversing L4 nerve roots are inflamed. Certainly, there is no evidence of severe stenosis that would be likely responsible for any type of cauda equina syndrome. ASSESSMENT AND PLAN: Mr. Michael is a very pleasant, very active 51-year-old gentleman with right buttock and anterior thigh pain that has been going on for two months that has been significantly resolving over the past few weeks. At this point, he has minimal disability due to the pain and is taking minimal medications. He has evidence of some jyvu-pu-[id number] stenosis at the L3-L4 level and a right-sided lateral disk protrusion that may be irritating the exiting L3 nerve root. We recommended that he continue his ibuprofen if he is continuing to have pain. We recommended that he take it easy and avoid any bending, twisting, or heavy lifting activities to avoid re-injuring his back. We did discuss the natural history of this and that he would likely improve significantly over time as it is continuing to be. He may have recurrences of back pain in the future, but certainly at this point nothing to be done surgically nor any other interventions that would likely make this resolve any quicker given that it is almost already completely resolved. The patient is in agreement with this plan. He will come back to see us if he has any questions in the future. * Steve Villalpando MD - 07/05/2012 8:39 AM EDT Mr. Michael is a 51-year-old gentleman seen today in the spine center for resolving right buttock and anterior thigh pain. The patient is seen and evaluated with Dr. Jean-Baptiste. Please refer to his separate comprehensive spine center note. I reviewed and personally agree with his assessment and plan and reviewed, examined, and obtained the history with Dr. Jean-Baptiste from Mr. Michael. His symptoms began in mid April when he was lifting a golf bag, had initially very significant buttock and right anterior thigh pain. These symptoms have resolved. Right now he is quite comfortable with taking anti-inflammatories. PHYSICAL EXAMINATION: His neurologic exam today demonstrates a normal gait. He could toe and heel walk without weakness. He has absent reflexes at the knees, symmetrically normal reflexes at the ankles. His motor exam is normal. His sensory function is intact. His tension signs are absent. DIAGNOSTIC DATA: His MRI demonstrates spxp-[id number]-[id number] stenosis L3-L4 essentially and a lateral recess, and the suggestion of a small disk bulge on the right which may be the etiology of his symptoms. IMPRESSION: Resolving right anterior thigh pain likely L3, possibly L4 in origin. Reviewed these findings with Mr. Michael. I see no need to change his management at this time other than to use anti-inflammatories only as needed. Restrictions on activities which may provoke his pain and re-aggravate his back. In all likelihood, I think this will continue to spontaneously resolve. I will recheck as needed. documented in this encounter Plan of Treatment Not on file documented as of this encounter Visit Diagnoses Diagnosis Spinal stenosis of lumbar region with radiculopathy L3-4 with right anterior thigh pain- Primary Spinal stenosis, lumbar region, without neurogenic claudication documented in this encounter Care Teams Auto Haulaway Driver Relationship Specialty Start Date End Date Zully Cruz APRN PCP - General 07/03/12 06/10/23 documented as of this encounter
--- OUTSIDE RECORDS SUMMARY | 2024-03-01 19:40 | XMS_ITS | Encounter Summary ---
Author Organization [facility] Address One [facility] [place] [address] Care Team Providers Care Canal Driver Name Role Phone Tresa Rowe Primary Care Provider +1- [phone] Reason for Visit * Consultation (Routine) - Closed Specialty Diagnoses / Procedures Referred By Contyudi t Referred To Contact Dermatology Diagnoses Family history of malignant neoplasm of other organs or systems Tresa Rowe PA [address] [place] [address] [facility] Dermatology [address] [place] [address] Referral ID Status Reason Start Date Expiration Date Visits Re quested Visits Authorized [id number] Closed 03/01/2023 02/29/2024 1 1 Encounter Details Date Type Department Care Team (Late st Contact Info) Description 06/11/2023 8:40 AM EDT Office Visit Dermatology at [facility] [address] [place] [id number] He Hernandez MD SK (seborrheic keratosis); Multiple benign melanocytic nevi of upper and lower extremities and trunk; Lentigines; Sebaceous hyperplasia; Dermal nevus Social History Tobacco Use Types Packs/Day Years Used Date Smoking Tobacco: Never Smokeless Tobacco: Never Alcohol Use Standard Drinks/Week Comments Yes 0 (1 standard drink = 0.6 oz pur e alcohol) Sex and Gender Information Value Date Recorded Sex Assigned at Not on file Gender Identity Not on file Sexual Orientation Not on file documented as of this encounter Progress Notes * He Hernandez MD - 06/11/2023 8:40 AM EDT Images from the original note were not included. DEPARTMENT OF DERMATOLOGY Medical Dermatology Clinic Note Provider: He Hernandez MD Patient's preferred name Brian Preferred contact method for results [x]Phone []myD-H []Letter Detailed phone message OK? Y Are there any other people with whom we may discuss your care? 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 Patient is referred to the clinic at [facility] of Tresa Rowe for a full skin exam with the following concerns: - No spots of concern today. Review of Systems: General: Feeling well. Skin: No other skin concerns. Medications: Reviewed in eD-H Allergies: Reviewed in eD-H Skin Examination: Full skin examination: Patient asked to undress to their comfort level. Verbalized that the provider???s preference is that the patient remove all clothing and that the provider will not examine areas patient elects to keep covered. Patient elects to keep underwear on and have the following examined: scalp, hair, face, ears, neck, chest, axillae, abdomen, back, and upper and lower extremities. Genitalia and buttocks were not examined. Assessment/Plan #. Dermal Nevus - Gay, fleshy papule on the left lower eyelid. - Discussed benign nature of lesion and provided reassurance. No treatment necessary at this time. #. Dermatofibroma - Firm papule, centrally raised and sclerotic, with peripheral hyperpigmentation and dimpling with lateral pressure on the left medial lower leg. - Discussed that these are benign fibrous (scar-like) lesions. No treatment necessary. #. Sebaceous Hyperplasia - Yellowish papules with central umbilication on the face. - Discussed diagnosis and etiology (benign growths of sebaceous glands and hair follicle unit). - Provided reassurance. No treatment necessary at this time. - Briefly reviewed cosmetic treatment options including but not limited to: topical tretinoin, electrocautery, and laser therapy. #. Seborrheic Keratoses - Stuck on, waxy papules on the trunk and extremities. - Discussed benign nature of lesions and provided reassurance. No treatment necessary at this time. #. Lentigines - Scattered light-brown, evenly pigmented, well-demarcated macules on sun-exposed areas of the trunk and extremities. - No worrisome pigmented lesions. Discussed benign nature of lesions and provided reassurance. Willcontinue to monitor. #. Benign Nevi - Scattered medium brown, evenly pigmented macules and papules on the trunk and extremities with reassuring pigment pattern on dermoscopy. - Discussed benign nature of lesions and provided reassurance. Will continue to monitor. Other: Sun protection discussed (protective clothing and SPF30+ broad-spectrum sunscreen) RTC: 1 year for FSE []Note routed to church secretary [x]Recall placed in scheduling system []Appointment scheduled at checkout Scribe attestation: Sophie Edgar [facility] has performed the documentation for this encounter in thepresence of and acting as a scribe for He Hernandez MD. I performed the above scribed service and agree with the accuracy of the documentation in this encounter. Reviewed and signed by: He Hernandez MD Dermatology [facility] Patient seen and evaluated with staff ambulatory nurse: Tiffanie Crooks MD Department of Dermatology [facility] * Tiffanie Crooks MD - 06/11/2023 8:40 AM EDT I directly supervised He Hernandez MD in the care of this Dermatology patient in person. I saw and evaluated this patient with He Hernandez MD. He Hernandez MD presented the history and physical exam details to me, then we saw the patient together, and I confirmed these findings. I agree with details as written. My physical examination confirms He Hernandez MD's findings. The assessment and plan were formulated in discussion with me at the time of visit, and I agree with them as documented. TIFFANIE CROOKS MD Staff Paint Sprayer Sandblaster Department of Dermatology [facility] documented in this encounter Plan of Treatment Not on file documented as of this encounter Visit Diagnoses Diagnosis SK (seborrheic keratosis) Other seborrheic keratosis Multiple benign melanocytic nevi of upper and lower extremities and trunk Lentigines Other dyschromia Sebaceous hyperplasia Other specified disease of sebaceous glands Dermal nevus Benign neoplasm of skin, site unspecified documented in this encounter Care Teams Canal Driver Relationship Specialty Start Date End Date Tresa Rowe PA [address] [place] [address] PCP - General Family Medicine 06/11/23 documented as of this encounter
--- OUTSIDE RECORDS SUMMARY | 2024-03-01 19:40 | XMS_ITS | Encounter Summary ---
[place] [address] Care Team Providers Care Chrome Plater Name Role Phone Zully Cruz Zachary CUELLAR Primary Care Provider [phone] [phone] Encounter Details Date Type Department Care Team (Late st Contact Info) Description 06/07/2012 Orders Only [place] [address] Steve Villalpando MD Social History Tobacco Use Types Packs/Day Years Used Date Smoking Tobacco: Never Assessed Sex and Gender Information Value Date Recorded Sex Assigned at Not on file Gender Identity Not on file Sexual Orientation Not on file documented as of this encounter Plan of Treatment Not on file documented as of this encounter Procedures Procedure Name Priority Date/Time Associated Diagnosis Comments FILM LIBRARY STORAGE ONLY MR SPINE Routine 06/07/2012 7:20 AM EDT documented in this encounter Results * Film Library- Storage only MR Spine (06/07/2012 7:20 AM EDT) 06/07/2012 7:20 AM EDT Narrative RAD - 11/02/2013 6:13 PM EDT This is a non-reportable exam. Procedure Note Kilo Arriaza - 11/02/2013 This is a non-reportable exam. Steve Villalpando MD G FILM LIBRARY ORD ERABLES [facility] [address] [facility] [place] [address] documented in this encounter Visit Diagnoses Not on filedocumented in this encounter Care Teams Chrome Plater Relationship Specialty Start Date End Date Zully Cruz, SURGERY MANAGER PCP - General 07/03/12 06/10/23 documented as of this encounter
--- OUTSIDE RECORDS SUMMARY | 2024-03-01 19:40 | XMS_ITS | Clinical Summary ---
Author Organization [facility] Address One [facility] [place] [address] Care Team Providers Care Dowel Sander Operator Name Role Phone Tresa Rowe Primary Care Provider +1- [phone] Allergies No known active allergies Medications Medication Sig Dispensed Refills Start Date End Date Status simvastatin (ZOCOR) 20 mg tablet Take 20 mg by mouth nightly. Active lisinopril (PRINIVIL;ZESTRIL) 20 mg tablet Take 40 mg by mouth daily. Active tamsulosin (FLOMAX) 0.4 mg capsule Take 0.8 mg by mouth daily. Active ibuprofen (ADVIL;MOTRIN) 800 mg tablet Take 800 mg by mouth 3 times daily as needed. Active aspirin 81 mg chewable tablet Take 81 mg by mouth daily. Active multivitamin (THERAGRAN) tablet Take 1 tablet by mouth daily. Active DOCOSAHEXANOIC ACID/EPA (FISH OIL ORAL) Take 2 capsules by mouth daily. Active finasteride (Propecia) 1 mg tablet Take 1 mg by mouth daily. Active Active Problems Problem Noted Date Diagnosed Date Spinal stenosis of lumbar re gion with radiculopathy L3-4 with right anterior thigh pain 07/05/2012 Family History Medical History Relation Comments Heart Disease Maternal Grandfather of a H eart Attack High Blood Pressure Mother Currently be ing treated for Hypertension Heart Disease Paternal Grandfather of a H eart Attack Relation Status Comments Maternal Grandfather Mother Paternal Grandfather Social History Tobacco Use Types Packs/Day Years Used Date Smoking Tobacco: Never Smokeless Tobacco: Never Tobacco Cessation:Ready to Q uit: Not Asked Alcohol Use Standard Drinks/Week Comments Yes 0 (1 standard drink = 0.6 oz pur e alcohol) Sex and Gender Information Value Date Recorded Sex Assigned at Not on file Gender Identity Not on file Sexual Orientation Not on file Last Filed Vital Signs Vital Sign Reading Time Taken Comments Blood Pressure 124/78 07/05/2012 7:57 AM EDT Pulse - - Temperature - - Respiratory Rate - - Oxygen Saturation - - Inhaled Oxygen Concentration - - Weight 72.6 kg (160 lb) 07/05/2012 7:57 AM EDT Height 172.7 cm (5' 8) 07/05/2012 7:57 AM EDT Body Mass Index 24.33 07/05/2012 7:57 AM EDT Plan of Treatment Health Maintenance Due Date Last Done Comments CT Colonography 1960 Colonoscopy 1960 Colorectal Cancer Screening 1960 FIT DNA 1960 FIT 1960 Sigmoidoscopy (10 year) with FIT yearly 1960 Sigmoidoscopy 1960 HIV screen 1978 Hepatitis C Screening 1978 Tetanus/Diphtheria/Pertussis Vaccines (1 - Tdap) 08/21 Zoster vaccine (1 of 2) 2010 Advance Directive 08/22/2015 Covid-19 Vaccine (1 - 2023- season) 2023 Influenza (Flu) vaccine (1 o f 1 - Influenza standard series) 11/14/2023 Care Teams Dowel Sander Operator Relationship Specialty Start Date End Date Tresa Rowe PA [address] [facility] [address] PCP - General Family Medicine 06/11/23
--- OUTSIDE RECORDS SUMMARY | 2024-03-01 19:40 | XMS_ITS | Encounter Summary ---
Author Organization [facility] Address [address] [place] [address] Care Team Providers Care City Library Director Name Role Phone Malik Ye MD Primary Care Provider U romaine Encounter Details Date Type Department Care Team (Latest Contact Info) Description 10/25/2013 8:21 EDT - 10/25/2013 23:59 EDT Hospital Encounter [address] [address] Unknown, Provider, MD Discharge Disposition: Home or Self Care Social History Tobacco Use Types Packs/Day Years Used Date Smoking Tobacco: Never Assessed Sex and Gender Information Value Date Recorded Sex Assigned at Not on file Legal Sex Male 18:52 EST Gender Identity Not on file Sexual Orientation Not on file documented as of this encounter Discharge Disposition Disposition Code Departure Means Destination Home or Self Correction documented in this encounter Plan of Treatment Not on file documented as of this encounter Visit Diagnoses Not on filedocumented in this encounter Care Teams City Library Director Relationship Specialty Start Date End Date Malik Ye MD PCP - General 09/03/10 documented as of this encounter
--- OUTSIDE RECORDS SUMMARY | 2024-03-01 19:40 | XMS_ITS | Encounter Summary ---
Author Organization [facility] Address [address] [place] [address] Care Team Providers Care Lens Fabricating Machine Tender Name Role Phone Malik Ye MD Primary Care Provider U romaine Encounter Details Date Type Department Care Team (Late st Contact Info) Description 11/04/2011 Results Only [facility] Laboratory Services - [facility] [address] [place], [place] [id number] Marcos Fuentes MD [address] [place] [address] Social History Tobacco Use Types Packs/Day Years [...] Procedure Name Priority Date/Time Associated Diagnosis Comments SURGICAL PATHOLOGY Routine 11/04/2011 0:00 EDT documented in this encounter Results * SURGICAL PATHOLOGY (11/04/2011 0:00 EDT) Pathology Report: SURGICAL PATHOLOGY REPORT Reports generated via electronic interface contain original data; however they are lacking the format of the original report. Caution should be taken when reading/interpreti ng unformatted reports. Name: ? ANABELL MICHAEL ? Accession #: ? [id number] ? : ? 1960 (Age: 51) ??M ? Collect Date: ? 11/04/2011 ? Location: ? [facility] ? Receive Date: ? 11/04/2011 ? Provider: MARCOS FUENTES MD Copy to: LÁZARO AGUSTIN ? Final Pathologic Diagnosis: A. ?Colon, ascending, polyp, biopsy: 1. ?Fragment of colonic mucosa large lymphoid aggregate. See comment. 2. ? Melanosis coli. B. ?Large intestine, rectosigmoid polypectomy site, biopsy: 1. ?Colorectal mucosa with architectural distortion, consistent with previous biopsy site. 2. ? No dysplasia identified. Comment: ?Deeper sections have been examined (part A), diagnosis remains unchanged. Document reviewed and electronically signed by: KSENIA JOEL MD Report ??Date: 11/08/2011 18:33 By the signature above, the attending physician certifies that he/she has personally conducted a gross and/or microscopic examination of the described specimens and rendered or confirmed the above diagnosis. Specimen(s) Received: A. ?Ascending colon polyp B. ? Rectosigmoid polypectomy site Clinical History: ? H/O tubulovillous adenoma Gross Description: ? Received in formalin labelled Anabell Michael and ascending colon polyp are two benson-pink irregular soft tissue fragments measuring 0.2 x 0.2 x 0.2 cm and 0.4 x 0.2 x 0.2 cm. ??The specimen is entirely submitted as (A). ?? Received in formalin labelled Anabell Michael and rectosigmoid polypectomy site are two benson-pink irregular soft tissue fragments averaging 0.2 x 0.2 x 0.2 cm. The specimen is entirely submitted as (B). Tramaine Bradley)/mpl End of Report [facility] 11/04/2011 11/04/2011 9:2 8 EDT us Marcos Fuentes MD PATHOLOGY ORDERABLES Final Resul t [facility] [address] [place] [address] documented in this encounter Visit Diagnoses Not on filedocumented in this encounter Care Teams Lens Fabricating Machine Tender Relationship Specialty Start Date End Date Malik Ye MD PCP - General 09/03/10 documented as of this encounter
--- OUTSIDE RECORDS SUMMARY | 2024-03-01 19:40 | XMS_ITS | Encounter Summary ---
Author Organization [facility] Address [address] [place] [address] Care Team Providers Care Infantry Operations Specialist Name Role Phone Malik Ye MD Primary Care Provider U romaine Encounter Details Date Type Department Care Team (Late st Contact Info) Description 10/25/2013 Results Only [facility] [phone] Alejandro Miranda, [address] [place] [address] Social History Tobacco Use Types Packs/Day Years [...] Date/Time Associated Diagnosis Comments SURGICAL PATHOLOGY Routine 10/25/2013 19 :35 EDT documented in this encounter Results * SURGICAL PATHOLOGY (10/25/2013 19:35 EDT) Pathology Report: SURGICAL PATHOLOGY REPORT Reports generated via electronic interface contain original data; however they are lacking the format of the original report. Caution should be taken when reading/interpreti ng unformatted reports. Name: ? ANABELL MICHAEL ? Accession #: ? [id number] ? : ? 1960 (Age: 53) ??M ? Collect Date: ? 10/25/2013 ? Location: ? [facility] ? Receive Date: ? 10/26/2013 ? Provider: ALEJANDRO MIRANDA DO Copy to: ? Final Pathologic Diagnosis: SKIN OF LEG, RIGHT UPPER, SHAVE BIOPSY: - Melanocytic nevus, compound type, with unusual architectural features and mild cytologic atypia. ?? - Nevus present at peripheral edge and, focally, base of shave biopsy specimen. Microscopic Description: The epidermis is hyperplastic with elongate and anastomosing rete ridges. ??There is a proliferation of melanocytes with epidermal and dermal components. ??The intraepidermal melanocytes are arranged in nests and as individual cells in a lentiginous pattern. ??The nests predominate and vary in size, shape, and spacing. ??Some of the nests bridge between rete ridges. ??Although the individual melanocytes are unevenly spaced in some areas, they show no tendency toward confluent growth or upward migration. ??The melanocytes are enlarged and show a mild degree of nuclear size and shape variation. ??The dermal component consists of nests and cords of similar melanocytes that show steel wheel engraver maturation with descent. ??There is papillary dermal fibroplasia. ??(Dr. Thorne)/ljamber Document reviewed and electronically signed by: ELVIA THORNE MD Report ??Date: 10/27/2013 14:52 By the signature above, the attending physician certifies that he/she has personally conducted a gross and/or microscopic examination of the described specimens and rendered or confirmed the above diagnosis. Specimen(s) Received: Right upper leg Clinical History: Hyperpigmented skin lesion; R/O melanoma; clinical diagnosis code: 239.2 Gross Description: ? Received in formalin labelled with proper patient identification (initials B, J) and right upper leg is a shave biopsy of benson-white skin (0.6 x 0.5 cm). There is a central ovoid benson-brown macule that measures 0.3 x 0.2 cm with an adjacent circular benson-white smooth papule measuring 0.1 x 0.1 x 0.1 cm. Bisected and submitted in 1. Mee Eh 10/27/2013 08:55 AM End of Report [facility] 10/25/2013 19:3 5 EDT 10/26/2013 19:35 EDT us Alejandro Miranda DO PATHOLOGY ORDERABLES Fi nal Result [facility] [address] [place] [address] documented in this encounter Visit Diagnoses Not on filedocumented in this encounter Care Teams Infantry Operations Specialist Relationship Specialty Start Date End Date Malik Ye MD PCP - General 09/03/10 documented as of this encounter
--- OUTSIDE RECORDS SUMMARY | 2024-03-01 19:40 | XMS_ITS | Encounter Summary ---
Author Organization [facility] Address [address] [place] [address] Care Team Providers Care Stone Carriage Operator Name Role Phone Malik Ye MD Primary Care Provider U romaine Encounter Details Date Type Department Care Team (Latest Contact Info) Description 11/10/2013 14:45 EDT - 11/10/2013 23:59 EDT Hospital Encounter [address] [address] Unknown, Provider, MD Discharge Disposition: Home or [...] Code Departure Means Destination Home or Self Jail documented in this encounter Plan of Treatment Not on file documented as of this encounter Visit Diagnoses Not on filedocumented in this encounter Care Teams Stone Carriage Operator Relationship Specialty Start Date End Date Malik Ye MD PCP - General 09/03/10 documented as of this encounter
--- OUTSIDE RECORDS SUMMARY | 2024-03-01 19:40 | XMS_ITS | Continuity of Care Document ---
Author Organization [facility] Address [address] [place] [address] Care Team Providers Care Dry Chain Operator Name Role Phone SYDNIE PEREIRA PA-C Primary Care Scottteresita john Encounter [facility] FIN NBR [id number] Date(s): 07/19/23 - 07/19/23 [facility] [address] [place] [address] Discharge Disposition: Home Allergies, Adverse Reactions, Alerts No Known Medication Allergies Assessment and Plan Future Appointments Medications cholecalciferol 2000 intl units oral tablet 1 Unknown, 0 Refill(s) Start Date: 02/12/22 Status: Ordered finasteride 5 mg oral tablet 1 Unknown, 0 Refill(s) Start Date: 02/12/22 Status: Ordered finasteride 5 mg oral tablet 5 mg = 1 tab, Oral, Daily, # 90 tab, 3 Refill(s), Pharmacy: [id number], 174, cm, 07/19/23 7:59:00 EDT, [...] Related Diagnosis Body Site Status Colonoscopy Completed Social History Social History Type Response Tobacco Never tobacco user T obacco Use:. Sex Patient Care team information Care Team Personnel Name: SYDNIE PEREIRA PA-C Position: No Access Member Role: Primary Care Physician Address: Address: [address] [address]- Care Team Related Persons Name: GABRIELA MUHAMMAD Address: Home [address] [place] [id number] [facility]
--- OUTSIDE RECORDS SUMMARY | 2024-03-01 19:40 | XMS_ITS | Continuity of Care Document ---
Author Organization [facility] Ambulatory Clinics Address [address] [place] [address] Care Team Providers Care Dough Machine Operator Name Role Phone SYDNIE PEREIRA PA-C Primary Care Kailyn john Encounter [facility] NBR [id number] Date(s): 07/19/23 - 07/19/23 [facility] [address] [place] [address]- Encounter Diagnosis Benign localized prostatic hyperplasia with lower urinary tract symptoms (LUTS) (Discharge Diagnosis) - 07/19/23 Discharge Disposition: Home or Self Care Attending Physician: Chelsy Fuller MD Referring Physician: SYDNIE PEREIRA PA-C Allergies, Adverse Reactions, Alerts No Known Medication Allergies Assessment and Plan Extracted from: Title:Urology Office Visit Note Author:Chelsy Fuller MD Date:07/19/23 Benign localized prostatic h yperplasia with lower urinary tract symptoms (LUTS)??N40.1 ASSESSMENT:?? Mr. Michael is a pleasant 62 year-old man with BPH/LUTS who manages his symptoms with high-dose tamsulosin and finasteride, which he started in August 2021.?? He continues to have some ??bother with LUTS, but finds it manageable.?? He does not want to consider surgical options at this point, and prefers to remain on maximal medical therapy. ?? PLAN: 1.?? He will continue??finasteride and high-dose tamsulosin.?? 2.?? He will follow up in one year. ? Future Appointments Medications cholecalciferol 2000 intl units oral tablet 1 Unknown, 0 Refill(s) Start Date: 02/12/22 Status: Ordered finasteride 5 mg oral tablet 1 Unknown, 0 Refill(s) Start Date: 02/12/22 Status: Ordered finasteride 5 mg oral tablet 5 mg = 1 tab, Oral, Daily, # 90 tab, 3 Refill(s), Pharmacy: [id number], 174, cm, 07/19/23 7:59:00 EDT, [...] Results Laboratory List Name Date .Urinalysis POCT 07/19/23 Most recent to oldest [Reference Range]: 1 Method of Collect POC Clean Catch *NA* (07/19/23 8:10 AM) Specific [place], Ur POC 1.015 *NA* (07/19/23 8:10 AM) Specimen Color POC [Yellow] Yellow (07/19/23 8:10 AM) Glucose, Urine POC Negative mg/dL *NA* (07/19/23 8:10 AM) Bilirubin, Urine POC [Negative] Negative (07/19/23 8:10 AM) Ketones, Urine POC [Negative mg/dL] Nega tive mg/dL (07/19/23 8:10 AM) Blood, Urine POC [Negative] Trace 1 *ABN* (07/19/23 8:10 AM) pH, Urine POC 6.5 *NA* (07/19/23 8:10 AM) Protein, Urine POC [Negative mg/dL] Nega tive mg/dL (07/19/23 8:10 AM) Urobilinogen, Urine POC [0.2] 0.2 (07/19/23 8:10 AM) Nitrite, Urine POC [Negative] Negative (07/19/23 8:10 AM) Leuk Esterase, Urine POC [Negative] Nega tive (07/19/23 8:10 AM) Clarity, Urine POC [Clear] Clear (07/19/23 8:10 AM) 1Result Comment: Trace-lysed Vital Signs Most recent to oldest [Reference Range]: 1 Peripheral Pulse Rate [60-100 bpm] 88 bp m (07/19/23 7:59 AM) Blood Pressure [90-140/60-90 mmHg] 124/6 8mmHg (07/19/23 7:59 AM) Mean Arterial Pressure, Cuff [65-140 mmH g] 87 mmHg (07/19/23 7:59 AM) Weight 77.11 kg (07/19/23 7:59 AM) Weight Measured (lbs) 169.998 lb (07/19/23 7:59 AM) Weight Dosing 77.110 kg (07/19/23 7:59 AM) [place] Body Weight Calculated 69.559 kg (07/19/23 7:59 AM) Height 174 cm (07/19/23 7:59 AM) Height/Length Measured (inches) 68.5 inc h (07/19/23 7:59 AM) BSA Measured 1.93 m2 (07/19/23 7:59 AM) Body Mass Index 25.47 kg/m2 (07/19/23 7:59 AM) Social History Social History Type Response Tobacco Never tobacco user T obacco Use:. Sex Physician Outpatient Note * Chelsy Fuller MD: PERFORM Event Display: Office Clinic Note Physician Authored Date: [id number] ANABELL MICHAEL :1960 Age:62 years Sex:Male Visit Date:07/19/2023 Primary Care Physician: SYDNIE PEREIRA PA-C Chief Complaint 1 year follow up with PSA prior History of Present Illness Mr. Michael is a pleasant 62 year-old man who presents today for follow-up ??of BPH/LUTS and chronic intermittent left groin pain.? He was last seen on 07/14/23.? He??continues to have??left groin pain intermittently; it primarily bothers him only when he is very active.?? He was [...] some bother with LUTS, with nocturia x 1-3 (rarely once, usually only twice).? He voids about every 1.5- 2h while awake.? He sometimes double voids.? He often has post-void dribbling.?? He??continues to have a slow urinary stream, especially at night.?? At times, he?? has i ntermittency.? He does not strain to void.? He does not feel he always voids to completion.? He has urinary urgency at times, and now occasionally has low-volume UUI.?? He has urinary hesitancy at times, mainly at night.? His PVR today was 49?? mL.? He has never had gross hematuria. He has never had urolithiasis. He has never had a UTI or prostatitis.? He has never had an elevated PSA. He does not have a family history of prostate or breast cancer.? PSA: 07/16/23: 0.667 (on finasteride). 07/12/21: 1.5 06/05/20: 1.3.?? Physical Exam Vitals & Measurements HR:??88??(Peripheral)?? BP:??124/68?? SpO2:??96%?? HT:??174??cm?? WT:??77.11??kg?? BMI:??25.47?? BSA:??1.93?? GENERAL APPEARANCE:??alert and oriented in NAD; appropriate with good affect.??.?? NEURO:??grossly intact.?? HEENT:??NCAT; EOMI.?? NECK:??supple.?? CHEST:??symmetric excursions.?? ABDOMEN:??soft, NT, ND.?? MUSCULOSKELETAL:??good gait and station.?? EXTREMITIES:??no c/c/e??.?? BACK/SPINE:??no CVAT.?? :??deferred. Assessment/Plan Benign localized prostatic hyperplasia with lower urinary tract symptoms (LUTS)??N40.1 ASSESSMENT:?? Mr. Michael is a pleasant 62 year-old man with BPH/LUTS who manages his symptoms with high-dose tamsulosin and finasteride, which he started in August 2021.?? He continues to have some ??bother with LUTS, but finds it manageable.?? He does not want to consider surgical options at this point, and prefers to remain on maximal medical therapy. ?? PLAN: 1.?? He will continue??finasteride and high-dose tamsulosin.?? 2.?? He will follow up in one year. ?? Problem List/Past Medical History Ongoing Benign [...] tablet, 5 mg= 1 tab, Oral, Daily, 11 refills Fish Oil 1000 mg oral capsule, [...] Date/Time Method of Collect POC Clean Catch 07/19/2023 08:10 EDT Specimen Color POC Yellow 07/19/2023 08:10 EDT Clarity, Urine POC Clear 07/19/2023 08:10 EDT Glucose, Urine POC Negative 07/19/2023 08:10 EDT Bilirubin, Urine POC Negative 07/19/2023 08:10 EDT Ketones, Urine POC Negative 07/19/2023 08:10 EDT Specific [place], Ur POC 1.015 07/19/2023 08:10 EDT pH, Urine POC 6.5 07/19/2023 08:10 EDT Protein, Urine POC Negative 07/19/2023 08:10 EDT Urobilinogen, Urine POC 0.2 07/19/2023 08:10 EDT Nitrite, Urine POC Negative 07/19/2023 08:10 EDT Blood, Urine POC Trace 07/19/2023 08:10 EDT Leuk Esterase, Urine POC Negative 07/19/2023 08:10 EDT Electronically Signed on 07/19/23 08:21 AM Chelsy Fuller MD Patient Care team information Care Team Personnel Name: SYDNIE PEREIRA PA-C Position: No Access Member Role: Primary Care Physician Address: Address: [facility] [address] [place] [address]- [place] Care Team Related Persons Name: GABRIELA MICHAEL Address: Home [address] [place] [id number] [facility]
--- OUTSIDE RECORDS SUMMARY | 2024-03-01 19:40 | XMS_ITS | Referral Summary ---
Author Organization [facility] Address [address] [place] [address] Care Team Providers Care Gunsmith Apprentice Name Role Phone Malik Ye MD Primary Care Provider U navailable Social History Tobacco Use Types Packs/Day Years Used Date Smoking Tobacco: Never Assessed Sex and Gender Information Value Date Recorded Sex Assigned at Not on file Legal Sex Male 18:52 EST Gender Identity Not on file Sexual Orientation Not on file Plan of Treatment Not on file Care Teams Gunsmith Apprentice Relationship Specialty Start Date End Date Malik Ye MD PCP - General 09/03/10
--- OUTSIDE RECORDS SUMMARY | 2024-03-01 19:40 | XMS_ITS | Encounter Summary ---
Author Organization [facility] Address [address] [place] [address] Care Team Providers Care Tablet Machine Operator Name Role Phone Malik Ye MD Primary Care Provider U romaine Encounter Details Date Type Department Care Team (Late st Contact Info) Description 07/23/[address] [facility] Pathology & Laboratory Medicine - [facility] [address] [place] [address] Outr Resulting Lab, Provider Social History Tobacco [...] Associated Diagnosis Comments PSA TOTAL, DIAGNOSTIC Routine 07/22/2022 17:30 EDT documented in this encounter Results * PSA TOTAL, DIAGNOSTIC (07/22/2022 17:30 EDT) PSA 0.5 <=4.5 ng/mL 07/23/2022 19:[address] [facility] Blood VENOUS BLOOD / Unknown 07/22/2022 17:30 EDT 07/23/2022 17:[address] [facility] - 07/23/2022 19:33 EDT NOTE: Serum PSA concentration should not be interpreted as absolute evidence for the presence or absence of malignant disease. Assayed on Siemens ADVIA [employer]24aur XPT using chemiluminescent technology.??Values obtained by using different assay methods cannot be used interchangeably. us Provider Outr Resulting Lab CHEMISTRY & BLOOD GA S ORDERABLES Final Result [facility] [address] [place] [address] documented in this encounter Visit Diagnoses Not on filedocumented in this encounter Care Teams Tablet Machine Operator Relationship Specialty Start Date End Date Malik Ye MD PCP - General 09/03/10 documented as of this encounter
--- OUTSIDE RECORDS SUMMARY | 2024-03-01 19:40 | XMS_ITS | Clinical Summary ---
Author Organization [facility] Address [address] [place] [address] Care Team Providers Care Vending Machine Filler Name Role Phone Malik Ye MD Primary Care Provider U navailable Social History Tobacco Use Types Packs/Day Years Used Date Smoking Tobacco: Never Assessed Sex and Gender Information Value Date Recorded Sex Assigned at Not on file Legal Sex Male 18:52 EST Gender Identity Not on file Sexual Orientation Not on file Plan of Treatment Health Maintenance Due Date Last Done Comments Hepatitis C Screen 1960 COVID-19 Vaccine (2023- season) 2023 RSV Immunization ( o r 60+ Years) (1 - 1-dose 75+ series) 08/22/2035 Care Teams Vending Machine Filler Relationship Specialty Start Date End Date Malik Ye MD PCP - General 09/03/10
--- OUTSIDE RECORDS SUMMARY | 2024-03-01 19:40 | XMS_ITS | Encounter Summary ---
Author Organization [facility] Address [address] [place] [address] Care Team Providers Care Client Support Consultant Name Role Phone Malik Ye MD Primary Care Provider U romaine Encounter Details Date Type Department Care Team (Late st Contact Info) Description 09/03/2010 Results Only [facility] - [facility] [address] [place], [place] [id number] Marcos Fuentes MD [address] [place] [address] Social History Tobacco Use Types [...] Date/Time Associated Diagnosis Comments SURGICAL PATHOLOGY Routine 09/03/2010 0:00 EDT documented in this encounter Results * SURGICAL PATHOLOGY (09/03/2010 0:00 EDT) Pathology Report: SURGICAL PATHOLOGY REPORT ? Reports generated via electronic interface contain original data; ? however they are lacking the format of the original report. ? Caution should be taken when reading/interpreti ng unformatted reports. ? Name: ? SABINA, ANABELL Guerin JR ? Accession #: ? [id number] ? : ? 1960 (Age: 50) ??M ? Collect Date: ? 09/03/2010 ? Location: ? [facility] ? Receive Date: ? 09/03/2010 ? Provider: MARCOS DRAPERO MD ? Copy to: MALIK CHIKIS MD ? Final Pathologic Diagnosis: ? A. ?Colon, descending, polyp, biopsy: ? 1. ?Tubular adenoma (one piece). ? B. ?Rectum, 12-15 cm, polyp, biopsies: ? 1. ?Tubular adenoma (three pieces). ? Document reviewed and electronically signed by: ? Alex Andrea MD ? Report ??Date: 09/08/2010 16:16 ? By the signature above, the attending physician certifies that he/she has ? personally conducted a gross and/or microscopic examination of the described ? specimens and rendered or confirmed the above diagnosis. ? Specimen(s) Received: ? A. ?Descending colon polyp (#1) ? B. ? Rectal polyp, 12-15 cm (#2) ? Clinical History: ? Screening for colon cancer ? Gross Description: ? Received in formalin labelled Anabell Michael and descending colon polyp ?? is a benson-pink, 0.3 x 0.3 x 0.2 cm, soft tissue fragment. ??The specimen is ? entirely submitted as (A). ? Received in formalin labelled Anabell Michael and rectal polyp 12-15 cm are ? three benson-pink, polypoid, soft tissues ranging from 0.5 x 0.5 x 0.3 cm to 1.5 x 1.3 x 1.0 cm. ?? The surgical margin is identified on the largest tissue and is ?? inked black. ??The smallest tissue is submitted intact as (B1). ??The intermediate tissue is serially sectioned and submitted as (B2) and (B3). ??The largest tissue is serially sectioned and submitted as (B4) and (B5). ??/rui ? End of Report ? [facility] 09/03/2010 09/03/2010 8:4 1 EDT us Marcos Fuentes MD PATHOLOGY ORDERABLES Final Resul t [facility] [address] [place] [address] documented in this encounter Visit Diagnoses Not on filedocumented in this encounter Care Teams Client Support Consultant Relationship Specialty Start Date End Date Malik Ye MD PCP - General 09/03/10 documented as of this encounter
--- OUTSIDE RECORDS SUMMARY | 2024-03-01 19:40 | XMS_ITS | Encounter Summary ---
Author Organization [facility] Address [address] [place] [address] Care Team Providers Care Info Specialist Name Role Phone Malik Ye MD Primary Care Provider U romaine Encounter Details Date Type Department Care Team (Late st Contact Info) Description 11/10/2013 Results Only [facility] [place] [facility] [phone] Alejandro Miranda, [address] [place] [address] Social History Tobacco Use Types Packs/Day Years [...] Date/Time Associated Diagnosis Comments SURGICAL PATHOLOGY Routine 11/10/2013 13 :44 EDT documented in this encounter Results * SURGICAL PATHOLOGY (11/10/2013 13:44 EDT) Pathology Report: SURGICAL PATHOLOGY REPORT Reports generated via electronic interface contain original data; however they are lacking the format of the original report. Caution should be taken when reading/interpreti ng unformatted reports. Name: ? ANABELL MICHAEL JR ? Accession #: ? [id number] ? : ? 1960 (Age: 53) ??M ? Collect Date: ? 11/10/2013 ? Location: ? [facility] ? Receive Date: ? 11/15/2013 ? Provider: ALEJANDRO MIRANDA DO Copy to: ? Final Pathologic Diagnosis: SKIN OF THIGH, RIGHT MEDIAL, SHAVE BIOPSY: - Epidermal reparative change and dermal scar, consistent with biopsy site. - No residual melanocytic proliferation identified. Microscopic Description: Sections consist of a shave biopsy of skin to the superficial reticular dermis. The epidermis, centrally, shows marked irregular hyperplasia with reactive changes and overlying crust. ??Melanocytes are relatively normal in number and morphology. ??The underlying dermis has fibrosis with granulation tissue and occasion multinucleate giant cells. ??(Dr. Thorne)/[facility] Document reviewed and electronically signed by: ELVIA THORNE MD Report ??Date: 11/16/2013 13:09 By the signature above, the attending physician certifies that he/she has personally conducted a gross and/or microscopic examination of the described specimens and rendered or confirmed the above diagnosis. Specimen(s) Received: Right medial thigh Clinical History: Re-shave with mild atypia; clinical diagnosis code: 239.2 Gross Description: ? Received in formalin labelled with proper patient identification (initials B, J) and Rt medial superior thigh is a shave biopsy of benson skin (1.1 x 0.8 cm). There is a central circular benson-white scaled previous biopsy site that measures 0.4 x 0.4 cm. ??Trisected and submitted in 1. Mee Stauffer 11/15/2013 02:30 PM End of Report [facility] 11/10/2013 13:4 4 EDT 11/15/2013 13:44 EDT us Aeljandro Miranda DO PATHOLOGY ORDERABLES Fi nal Result [facility] [address] [place] [address] documented in this encounter Visit Diagnoses Not on filedocumented in this encounter Care Teams Info Specialist Relationship Specialty Start Date End Date Malik Ye MD PCP - General 09/03/10 documented as of this encounter
[2024-03-01 20:21] LABS: BUN 12 mg/dL (7-18); CREATININE 0.8 mg/dL (0.70-1.30); Calcium 8.8 mg/dL (8.5-10.1); Chloride 97 mmol/L (98-107); Estimated GFR 99.44 (mL/min/1.73m2); Glucose 99 mg/dL (74-106); Potassium 4.2 mmol/L (3.5-5.1); Sodium 130 mmol/L (136-145)
== END 2024-03-01 19:36 | disposition home or self-care (01) ==
LOC: NCHCN 19:35
PROVIDERS: PCP Physician Assistant Medical; Visit Provider Physician Assistant Medical
DX: I10 Essential (primary) hypertension (principal); E87.1 Hypo-osmolality and hyponatremia
CPT/HCPCS: 80048

== ENCOUNTER 2024-03-31 15:10 | Outpatient (REF) | payer BC, SELFPAY ==
--- OUTSIDE RECORDS SUMMARY | 2024-03-31 15:15 | XMS_ITS | Clinical Summary ---
Author Organization [facility] Address [address] [facility] [place] [address] Care Team Providers Care Sheeting Puller Name Role Phone Tresa Rowe Primary Care Provider +1- [phone] Allergies No known active allergies Medications Medication [...] 1978 Tetanus/Diphtheria/Pertussis Vaccines (1 - Tdap) 08/21 Pneumoccocal Vaccine: 50+ (1 of 1 - PCV) 2010 Zoster vaccine (1 of 2) 2010 Advance Directive 08/22/2015 Covid-19 Vaccine (1 - 2023- season) 2023 Influenza (Flu) vaccine (1 o f 1 - Influenza standard series) 11/14/2023 Care Teams Sheeting Puller Relationship Specialty Start Date End Date Tresa Rowe PA [address] [place] [address] PCP - General Family Medicine 06/11/23
--- OUTSIDE RECORDS SUMMARY | 2024-03-31 15:15 | XMS_ITS | Referral Summary ---
Author Organization [facility] Address [address] [place] [address] Care Team Providers Care Hydraulic Lift Driver Name Role Phone Malik Ye MD Primary Care Provider U navailable Social History Tobacco Use Types Packs/Day Years Used Date Smoking Tobacco: Never Assessed Sex and Gender Information Value Date Recorded Sex Assigned at Not on file Legal Sex Male 18:52 EST Gender Identity Not on file Sexual Orientation Not on file Plan of Treatment Not on file Care Teams Hydraulic Lift Driver Relationship Specialty Start Date End Date Malik Ye MD PCP - General 09/03/10
--- OUTSIDE RECORDS SUMMARY | 2024-03-31 15:15 | XMS_ITS | Encounter Summary ---
Author Organization [facility] Address [address] [place] [address] Care Team Providers Care Fitter Helper Name Role Phone Malik Ye MD Primary Care Provider U romaine Encounter Details Date Type Department Care Team (Late st Contact Info) Description 08/11/2022 Lab Requisition [facility] Pathology & Laboratory Medicine - [facility] [address] [place] [address] Outr Resulting Lab, Provider Social History Tobacco [...] PSA 0.5 <=4.5 ng/mL 08/12/2022 9:14 EDT [facility] Blood VENOUS BLOOD / Unknown 08/11/2022 7:40 EDT 08/11/2022 16:51 EDT Narrative [facility] - 08/12/2022 9:14 EDT NOTE: Serum PSA concentration should not be interpreted as absolute evidence for the presence or absence of malignant disease. Assayed on Siemens ADVIA copygramaur XPT using chemiluminescent technology.??Values obtained by using different assay methods cannot be used interchangeably. us Provider Outr Resulting Lab CHEMISTRY & BLOOD GA S ORDERABLES Final Result [facility] [address] [place] [address] documented in this encounter Visit Diagnoses Not on filedocumented in this encounter Care Teams Fitter Helper Relationship Specialty Start Date End Date Malik Ye MD PCP - General 09/03/10 documented as of this encounter
--- OUTSIDE RECORDS SUMMARY | 2024-03-31 15:15 | XMS_ITS | Encounter Summary ---
Author Organization [facility] [place] [address] [place] [address] Care Team Providers Care Surveillance Specialist Name Role Phone Tresa Rowe Primary Care Provider +1- [phone] Encounter Details Date Type Department Care Team [...] on filedocumented in this encounter Care Teams Surveillance Specialist Relationship Specialty Start Date End Date Tresa Rowe PA [address] [place] [address] PCP - General Family Medicine 06/11/23 documented as of this encounter
--- OUTSIDE RECORDS SUMMARY | 2024-03-31 15:15 | XMS_ITS | Encounter Summary ---
[place] [address] Care Team Providers Care Strategic Analyst Name Role Phone Zully Cruz Zachary CUELLAR Primary Care Provider +1 [phone] Encounter Details Date Type Department Care Team (Late st Contact Info) Description 06/07/2012 Orders [place] [address] Steve Villalpando MD Social History Tobacco Use [...] Villalpando MD G FILM LIBRARY ORD ERABLES [facility] [address] [facility] [place] [address] documented in this encounter Visit Diagnoses Not on filedocumented in this encounter Care Teams Strategic Analyst Relationship Specialty Start Date End Date Zully Cruz, [employer] PCP - General 07/03/12 06/10/23 documented as of this encounter
--- OUTSIDE RECORDS SUMMARY | 2024-03-31 15:15 | XMS_ITS | Encounter Summary ---
[place] [address] Care Team Providers Care Performance Improvement Analyst Name Role Phone Zully Cruz APRN Primary Care Provider +1 [phone] Reason for Visit * Reason Comments Right Leg Pain Encounter Details Date Type Department Care Team (Latest Contact Info) Description 07/05/2012 7:20 AM EDT Office [place] [id number] Steve Villalpando MD Spinal stenosis of lumbar [...] twisted his back. This was done in [place]. He then had a duration of symptoms [...] He drinks occasional alcohol. 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 He does do some lifting at his job. He enjoys golf and using the [employer] to a significant degree. He is very [...] the L3-L4 level, he does have some vsoi-xo-kepbtcct stenosis both centrally and the lateral recesses [...] minimal medications. He has evidence of some lzvm-jt-nqykttxg stenosis at the L3-L4 level and a [...] are absent. DIAGNOSTIC DATA: His MRI demonstrates jeah-rt-tyuoqqlw stenosis L3-L4 essentially and a lateral recess, [...] claudication documented in this encounter Care Teams Performance Improvement Analyst Relationship Specialty Start Date End Date Zully Cruz APRN PCP - General 07/03/12 06/10/23 documented as of this encounter
--- OUTSIDE RECORDS SUMMARY | 2024-03-31 15:15 | XMS_ITS | Encounter Summary ---
Author Organization [facility] Address [address] [place] [address] Care Team Providers Care Certified Surgical Assistant Name Role Phone Malik Ye MD Primary Care Provider U romaine Encounter Details Date Type Department Care Team (Latest Contact Info) Description 11/10/2013 14:45 EDT - 11/10/2013 23:59 EDT Hospital Encounter [address] [address] Unknown, Provider, MD Discharge Disposition: Home or [...] Code Departure Means Destination Home or Self [place] documented in this encounter Plan of Treatment Not on file documented as of this encounter Visit Diagnoses Not on filedocumented in this encounter Care Teams Certified Surgical Assistant Relationship Specialty Start Date End Date Malik Ye MD PCP - General 09/03/10 documented as of this encounter
--- OUTSIDE RECORDS SUMMARY | 2024-03-31 15:15 | XMS_ITS | Encounter Summary ---
Author Organization Replaced By [facility] Address One [facility] [place] [address] Care Team Providers Care Airbrush Painter Name Role Phone Tresa Rowe Primary Care Provider [phone]- [phone] Reason for Visit * Consultation (Routine) - Closed Specialty Diagnoses / Procedures Referred By Contyudi t Referred To Contact Dermatology Diagnoses Family history of malignant neoplasm of other organs or systems Tresa Rowe PA [address] [place] [address] 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 Patient is referred to the clinic at [facility] of Tresa Rowe for a full skin [...] not examined. Assessment/Plan #. Dermal Nevus - [place], fleshy papule on the left lower eyelid. [...] 1 year for FSE []Note routed to general foreman [x]Recall placed in scheduling system []Appointment scheduled at checkout Scribe attestation: Sophie Edgar [facility] has performed the documentation for this encounter in thepresence of and acting as a scribe for He Hernandez MD. I performed the above scribed service and agree with the accuracy of the documentation in this encounter. Reviewed and signed by: He Hernandez MD Dermatology [facility] Patient seen and evaluated with staff art tracer: Tiffanie Crooks MD Department of Dermatology [facility] * Tiffanie Crooks MD - 06/11/2023 [...] them as documented. TIFFANIE CROOKS MD Staff Accountancy Professor Department of Dermatology [facility] documented in this encounter Plan of Treatment Not on file documented as of this encounter Visit Diagnoses Diagnosis SK (seborrheic keratosis) Other seborrheic keratosis Multiple benign melanocytic nevi of upper and lower extremities and trunk Lentigines Other dyschromia Sebaceous hyperplasia Other specified disease of sebaceous glands Dermal nevus Benign neoplasm of skin, site unspecified documented in this encounter Care Teams Airbrush Painter Relationship Specialty Start Date End Date Tresa Rowe PA [address] [place] [address] PCP - General Family Medicine 06/11/23 documented as of this encounter
--- OUTSIDE RECORDS SUMMARY | 2024-03-31 15:15 | XMS_ITS | Encounter Summary ---
Author Organization [facility] Address [address] [place] [address] Care Team Providers Care Target Trimmer Name Role Phone Malik Ye MD Primary Care Provider U romaine Encounter Details Date Type Department Care Team (Late st Contact Info) Description 06/08/2019 Lab Requisition [facility] Pathology & Laboratory Medicine - [address] [address] Unknown, Provider, Social History Tobacco Use Types [...] Lyme Ab Negative Negative 06/09/2019 9:55 EDT [facility] Blood VENOUS BLOOD / Unknown 06/07/2019 17:50 EDT 06/08/2019 17:24 EDT us Provider Unknown IMMUNOLOGY AND SEROLOGY CASTILLO HUTTON Final Result [facility] [address] [place] [address] documented in this encounter Visit Diagnoses Not on filedocumented in this encounter Care Teams Target Trimmer Relationship Specialty Start Date End Date Malik Ye MD PCP - General 09/03/10 documented as of this encounter
--- OUTSIDE RECORDS SUMMARY | 2024-03-31 15:15 | XMS_ITS | Encounter Summary ---
Author Organization [facility] Address [address] [place] [address] Care Team Providers Care Flat Bed Operator Name Role Phone Malik Ye MD Primary Care Provider Bart gavin Encounter Details Date Type Department Care Team (Late st Contact Info) Description 06/06/[address] [facility] Pathology & Laboratory Medicine - [facility] [address] [place] [address] Outr Resulting Lab, Provider Social History Tobacco [...] 0.0 - 3.5 ng/mL 06/06/2020 17:[address] [facility] Blood VENOUS BLOOD / Unknown 06/05/2020 17:43 EDT 06/06/2020 16:07 EDT Narr[address] [facility] - 06/06/2020 17:25 EDT NOTE: Serum PSA concentration should not be interpreted as absolute evidence for the presence or absence of malignant disease. Assayed on Siemens ADVIA Refinder by [employer] XPT using chemiluminescent technology.??Values obtained by using different assay methods cannot be used interchangeably. us Provider Outr Resulting Lab CHEMISTRY & BLOOD GA S ORDERABLES Final Result [facility] [address] [place] [address] documented in this encounter Visit Diagnoses Not on filedocumented in this encounter Care Teams Flat Bed Operator Relationship Specialty Start Date End Date Malik Ye MD PCP - General 09/03/10 documented as of this encounter
--- OUTSIDE RECORDS SUMMARY | 2024-03-31 15:15 | XMS_ITS | Encounter Summary ---
Author Organization Formerly [facility] [place] [address] Care Team Providers Care Line Assembly Utility Worker Name Role Phone Zully Cruz APRN Primary Care Provider [phone]- [phone] Encounter Details Date Type Department Care Team (Late st Contact Info) Description 07/05/2012 External Results XRay at [address] [place] [address] Provider, Scanning Social History Tobacco Use Types [...] on filedocumented in this encounter Care Teams Line Assembly Utility Worker Relationship Specialty Start Date End Date Zully Cruz APRN PCP - General 07/03/12 06/10/23 documented as of this encounter
--- OUTSIDE RECORDS SUMMARY | 2024-03-31 15:15 | XMS_ITS | Encounter Summary ---
Author Organization [facility] Address [address] [place] [address] Care Team Providers Care Cnc Set Up Operator Name Role Phone Malik Ye MD Primary Care Provider U romaine Encounter Details Date Type Department Care Team (Late st Contact Info) Description 11/10/2013 Results Only [facility] [phone] Alejandro Miranda, [address] [place] [address] Social History Tobacco Use Types Packs/Day Years [...] ANABELL MICHAEL JR ? Accession #: ? [id number] ? : ? 1960 (Age: 53) ??M ? Collect Date: ? 11/10/2013 ? Location: ? [facility] ? Receive Date: ? 11/15/2013 ? Provider: ALEJANDRO MIRNADA DO Copy to: ? Final Pathologic Diagnosis: [...] tissue and occasion multinucleate giant cells. ??(Dr. Thorne)/[facility] Document reviewed and electronically signed by: ELVIA [...] 13:4 4 EDT 11/15/2013 13:44 EDT us Alejandro Miranda DO PATHOLOGY ORDERABLES Fi nal Result [facility] [address] [place] [address] documented in this encounter Visit Diagnoses Not on filedocumented in this encounter Care Teams Cnc Set Up Operator Relationship Specialty Start Date End Date Malik Ye MD PCP - General 09/03/10 documented as of this encounter
--- OUTSIDE RECORDS SUMMARY | 2024-03-31 15:15 | XMS_ITS | Encounter Summary ---
Author Organization [facility] Address [address] [place] [address] Care Team Providers Care Fashion Buying Internship Name Role Phone Malik Ye MD Primary Care Provider U romaine Encounter Details Date Type Department Care Team (Late st Contact Info) Description 07/11/2021 Lab Requisition [facility] Pathology & Laboratory Medicine - [facility] [address] [place] [address] Outr Resulting Lab, Provider Social History Tobacco [...] PSA 1.5 <=4.5 ng/mL 07/11/2021 22:30 EDT [facility] Blood VENOUS BLOOD / Unknown 07/11/2021 8:20 EDT 07/11/2021 21:21 EDT Narrative [facility] - 07/11/2021 22:30 EDT NOTE: Serum PSA concentration should not be interpreted as absolute evidence for the presence or absence of malignant disease. Assayed on Siemens ADVIA [employer] XPT using chemiluminescent technology.??Values obtained by using different assay methods cannot be used interchangeably. us Provider Outr Resulting Lab CHEMISTRY & BLOOD GA S ORDERABLES Final Result [facility] [address] [place] [address] documented in this encounter Visit Diagnoses Not on filedocumented in this encounter Care Teams Fashion Buying Internship Relationship Specialty Start Date End Date Malik Ye MD PCP - General 09/03/10 documented as of this encounter
--- OUTSIDE RECORDS SUMMARY | 2024-03-31 15:15 | XMS_ITS | Encounter Summary ---
Author Organization [facility] Address [address] [place] [address] Care Team Providers Care Gang Sawyer Name Role Phone Malik Ye MD Primary Care Provider U romaine Encounter Details Date Type Department Care Team (Late st Contact Info) Description 09/03/2010 Results Only [facility] Laboratory Services - [facility] ([facility] [address], [place] [id number] Marcos Fuentes MD [address] [place] [address] Social History Tobacco Use Types [...] ANABELL Guerin JR ? Accession #: ? [id number] ? : ? 1960 (Age: 50) ??M [...] Final Resul t [facility] [address] [place] [address] documented in this encounter Visit Diagnoses Not on filedocumented in this encounter Care Teams Gang Sawyer Relationship Specialty Start Date End Date Malik Ye MD PCP - General 09/03/10 documented as of this encounter
--- OUTSIDE RECORDS SUMMARY | 2024-03-31 15:15 | XMS_ITS | Encounter Summary ---
Author Organization [facility] Address [address] [place] [address] Care Team Providers Care Pearl Cutter Name Role Phone Malik Ye MD Primary Care Provider U romaine Encounter Details Date Type Department Care Team (Late st Contact Info) Description 11/04/2011 Results Only [facility] Laboratory Services - [facility] ([facility]) [address] [place], [place] [id number] Marcos Fuentes MD [address] [place] [address] Social History Tobacco Use Types [...] ? ANABELL MICHAEL ? Accession #: ? [id number] ? : ? 1960 (Age: 51) ??M [...] Final Resul t [facility] [address] [place] [address] documented in this encounter Visit Diagnoses Not on filedocumented in this encounter Care Teams Pearl Cutter Relationship Specialty Start Date End Date Malik Ye MD PCP - General 09/03/10 documented as of this encounter
--- OUTSIDE RECORDS SUMMARY | 2024-03-31 15:15 | XMS_ITS | Encounter Summary ---
Author Organization [facility] Address [address] [place] [address] Care Team Providers Care Refrigerated Cargo Clerk Name Role Phone Malik Ye MD Primary Care Provider U romaine Encounter Details Date Type Department Care Team (Latest Contact Info) Description 10/25/2013 8:21 EDT - 10/25/2013 23:59 EDT Hospital Encounter [address] [address] Unknown, Provider, MD Discharge Disposition: Home or [...] Code Departure Means Destination Home or Self [facility] documented in this encounter Plan of Treatment Not on file documented as of this encounter Visit Diagnoses Not on filedocumented in this encounter Care Teams Refrigerated Cargo Clerk Relationship Specialty Start Date End Date Malik Ye MD PCP - General 09/03/10 documented as of this encounter
--- OUTSIDE RECORDS SUMMARY | 2024-03-31 15:15 | XMS_ITS | Encounter Summary ---
Author Organization [facility] Address [address] [place] [address] Care Team Providers Care Front End Loader Driver Name Role Phone Malik Ye MD Primary Care Provider U romaine Encounter Details Date Type Department Care Team (Late st Contact Info) Description 07/23/2022 Lab Requisition [facility] Pathology & Laboratory Medicine - [facility] [address] [place] [address] Outr Resulting Lab, Provider Social History Tobacco [...] 0.5 <=4.5 ng/mL 07/23/2022 19:[address] [facility] Blood VENOUS BLOOD / Unknown 07/22/2022 17:30 EDT 07/23/2022 17:[address] [facility] - 07/23/2022 19:33 EDT NOTE: Serum PSA concentration should not be interpreted as absolute evidence for the presence or absence of malignant disease. Assayed on Siemens ADVIA [employer] XPT using chemiluminescent technology.??Values obtained by using different assay methods cannot be used interchangeably. us Provider Outr Resulting Lab CHEMISTRY & BLOOD GA S ORDERABLES Final Result [facility] [address] [place] [address] documented in this encounter Visit Diagnoses Not on filedocumented in this encounter Care Teams Front End Loader Driver Relationship Specialty Start Date End Date Malik Ye MD PCP - General 09/03/10 documented as of this encounter
--- OUTSIDE RECORDS SUMMARY | 2024-03-31 15:15 | XMS_ITS | Encounter Summary ---
Author Organization [facility] Address [address] [place] [address] Care Team Providers Care Tape Stringer Name Role Phone Malik Ye MD Primary Care Provider U romaine Encounter Details Date Type Department Care Team (Late st Contact Info) Description 10/25/2013 Results Only [facility] [phone] Alejandro Miranda, [address] [place] [address] Social History Tobacco Use Types Packs/Day Years [...] ? ANABELL MICHAEL ? Accession #: ? [id number] ? : ? 1960 (Age: 53) ??M [...] and cords of similar melanocytes that show shelf stocker maturation with descent. ??There is papillary dermal [...] Fi nal Result [facility] [address] [place] [address] documented in this encounter Visit Diagnoses Not on filedocumented in this encounter Care Teams Tape Stringer Relationship Specialty Start Date End Date Malik Ye MD PCP - General 09/03/10 documented as of this encounter
--- OUTSIDE RECORDS SUMMARY | 2024-03-31 15:15 | XMS_ITS | Clinical Summary ---
Author Organization [facility] Address [address] [place] [address] Care Team Providers Care Pecan Picker Name Role Phone Malik Ye MD Primary [...] - 1-dose 75+ series) 08/22/2035 Care Teams Pecan Picker Relationship Specialty Start Date End Date Malik Ye MD PCP - General 09/03/10
[2024-03-31 16:35] LABS: Anion Gap 9.3 mmol/L (3-11); BUN 12 mg/dL (7-18); CO2 26.7 mmol/L (21.0-32.0); CREATININE 0.9 mg/dL (0.70-1.30); Calcium 9.1 mg/dL (8.5-10.1); Chloride 100 mmol/L (98-107); Estimated GFR 95.97 (mL/min/1.73m2); Glucose 142 mg/dL (74-106); Potassium 4.6 mmol/L (3.5-5.1); Sodium 136 mmol/L (136-145)
== END 2024-03-31 15:11 | disposition home or self-care (01) ==
LOC: NCHCN 15:10
PROVIDERS: PCP Physician Assistant Medical; Visit Provider Physician Assistant Medical
DX: E87.1 Hypo-osmolality and hyponatremia (principal)
CPT/HCPCS: 80048

== ENCOUNTER 2024-08-08 14:02 | Outpatient (REF) | payer BC, SELFPAY ==
[2024-08-08 16:35] LABS: ALT 30 U/L (16-63); AST 25 U/L (15-37); Albumin 4.3 g/dL (3.4-5.0); Alkaline Phosphatase 84 U/L (46-116); Anion Gap 7.2 mmol/L (3-11); BUN 9 mg/dL (7-18); Bilirubin, Total 0.8 mg/dL (0.2-1.0); CO2 27.8 mmol/L (21.0-32.0); CREATININE 0.7 mg/dL (0.70-1.30); Calcium 9.1 mg/dL (8.5-10.1); Calculated LDL 135 mg/dL (<100); Chloride 97 mmol/L (98-107); Cholesterol 225 mg/dL (<200); Estimated GFR 103.53 (mL/min/1.73m2); Glucose 104 mg/dL (74-106); HDL Cholesterol 80 mg/dL (>or=40); Potassium 4.7 mmol/L (3.5-5.1); Sodium 132 mmol/L (136-145); Total Protein 7.2 g/dL (6.4-8.2); Triglyceride 51 mg/dL (<150)
[2024-08-08 17:31] LABS: Hemoglobin A1C 5.3 % (<5.7)
[2024-08-08 22:31] LABS: PSA, Screening 0.5 ng/mL (<=4.5)
== END 2024-08-08 14:03 | disposition home or self-care (01) ==
LOC: NCHCN 14:02
PROVIDERS: PCP Physician Assistant Medical; Visit Provider Physician Assistant Medical
DX: I10 Essential (primary) hypertension (principal); E78.5 Hyperlipidemia, unspecified; Z12.5 Encounter for screening for malignant neoplasm of prostate; Z13.1 Encounter for screening for diabetes mellitus
CPT/HCPCS: 80053; 80061; 84153; 83036

== ENCOUNTER 2024-09-11 09:24 | Outpatient (REF) | payer BC, SELFPAY ==
[2024-09-11 16:36] LABS: Anion Gap 10.7 mmol/L (3-11); BUN 11 mg/dL (7-18); CO2 23.3 mmol/L (21.0-32.0); CREATININE 0.6 mg/dL (0.70-1.30); Calcium 8.3 mg/dL (8.5-10.1); Chloride 99 mmol/L (98-107); Glucose 111 mg/dL (74-106); Potassium 4.5 mmol/L (3.5-5.1); Sodium 133 mmol/L (136-145); Uric Acid 4.9 mg/dL (3.5-7.2)
== END 2024-09-11 09:25 | disposition home or self-care (01) ==
LOC: NCHCN 09:24
PROVIDERS: PCP Physician Assistant Medical; Visit Provider Physician Assistant Medical
DX: I10 Essential (primary) hypertension (principal); M79.672 Pain in left foot
CPT/HCPCS: 80048; 84550

== ENCOUNTER 2024-10-31 09:14 | Outpatient (REF) | payer BC, SELFPAY ==
[2024-10-31 16:20] LABS: Anion Gap 9.9 mmol/L (3-11); BUN 8 mg/dL (7-18); CO2 27.1 mmol/L (21.0-32.0); Calcium 8.5 mg/dL (8.5-10.1); Chloride 102 mmol/L (98-107); Estimated GFR 98.83 (mL/min/1.73m2); Glucose 97 mg/dL (74-106); Potassium 4.5 mmol/L (3.5-5.1); Sodium 139 mmol/L (136-145)
== END 2024-10-31 09:15 | disposition home or self-care (01) ==
LOC: NCHCN 09:14
PROVIDERS: PCP Physician Assistant Medical; Visit Provider Physician Assistant Medical
DX: I10 Essential (primary) hypertension (principal)
CPT/HCPCS: 80048